=== PATIENT | male | born 1945 | race Caucasian/White ===

== ENCOUNTER 2016-11-02 09:50 | Emergency (ER) | payer MEDICARE ==
[2016-11-02] MEDS ORDERED: MORPHINE SULFATE 4 MG/ML SYRINGE IVP STA (10:24)
[2016-11-02] MEDS ORDERED: SODIUM CHLORIDE 0.9% 1,000 ML IV STA (10:25)
--- NOTE | 2016-11-02 10:29 | ED ---
General Adult HPI - General Chief complaint: Extremity Problem,Nontraumatic Stated complaint: tight leg muscles Time Seen by Provider: 11/02/16 10:05 Source: patient Mode of arrival: wheelchair Limitations: no limitations - History of Present Illness Initial comments: Patient is a 71-year-old male with history of CAD, heart failure on Lasix, CVA on Savaysa, digoxin use presenting for bilateral lotion and cramping. Patient states that over the past one to days. Patient's been trying in anti- inflammatory that he gets from the [employer] store with some relief. Patient states worse with ambulation. Patient states the cramps while laying in bed as well. Patient denies any trauma. Patient denies history of DVT. Patient has any weakness or numbness. Denies fever, chills, chest pain, shortness breath, nausea, vomiting, diarrhea, dysuria. - Related Data Home Medications Medication Instructions Recorded Confirmed Lisinopril-Hctz 20-25 mg 1 tab PO DAILY 01/25/15 11/02/16 [Zestoretic 20-25] Cyanocobalamin [Vitamin B-12] 500 mcg PO DAILY 06/30/15 11/02/16 Digoxin [Lanoxin] 125 mcg PO DAILY 08/14/15 11/02/16 Metoprolol Tartrate [Lopressor] 100 mg PO DAILY 01/11/16 11/02/16 Albuterol Inhaler [Ventolin Hfa 1 - 2 puff INHALATION RT-Q6H PRN 11/02/16 Inhaler] Diltiazem HCl [Diltiazem 24Hr ER] 180 mg PO DAILY 11/02/16 11/02/16 Previous Rx's Medication Instructions Recorded Atorvastatin [Lipitor] 80 mg PO DAILY #90 tab 07/04/15 Edoxaban Tosylate [Savaysa] 60 mg PO DAILY #30 tablet 07/04/15 Furosemide [Lasix] 40 mg PO BID@0900,1600 #60 tab 07/04/15 Nitroglycerin Sl Tabs [Nitrostat] 0.4 mg SUBLINGUAL Q5M PRN #30 tab 07/04/15 Potassium Chloride ER [K-Dur 10] 10 meq PO BID #60 tab.er.prt 07/04/15 Aspirin 81 mg PO DAILY #30 chewable 04/25/16 HYDROcodone/APAP 5-325MG [[place] 5] 1 each PO Q6HR PRN #10 tab 11/02/16 Methocarbamol [Robaxin] 500 mg PO TID #21 tab 11/02/16 Allergies Allergy/AdvReac Type Severity Reaction Status Date / Time No Known Allergies Allergy Verified 11/02/16 12:58 Review of Systems ROS Statement: Those systems with pertinent positive or pertinent negative responses have been documented in the HPI. Constitutional: No fever and no chills. HENT: No congestion, no rhinorrhea and no sore throat. Eyes: No discharge and no redness. Respiratory: No cough and no shortness of breath. Cardiovascular: No chest pain and no palpitations. Gastrointestinal: No nausea, no vomiting, no abdominal pain and no diarrhea. Genitourinary: No dysuria and no hematuria. Musculoskeletal: No back pain and + myalgias. Skin: No pallor and no rash. Neurological: No dizziness and No headaches. ROS Other: All systems not noted in ROS Statement are negative. Past Medical History Past Medical History: Coronary Artery Disease (CAD), Heart Failure, CVA/TIA, GERD/Reflux, Osteoarthritis (OA), Pneumonia Additional Past Medical History / Comment(s): SEE DR FLORES'S H&P History of Any Multi-Drug Resistant Organisms: None Reported Past Surgical History: Orthopedic Surgery Additional Past Surgical History / Comment(s): RACHNA hand surgery FOR NERVE DAMAGE , colonoscopy, RT KNEE ARTHROSCOPY Past Anesthesia/Blood Transfusion Reactions: No Reported Reaction Past Psychological History: No Psychological Hx Reported Smoking Status: Former smoker Past Alcohol Use History: None Reported Additional Past Alcohol Use History / Comment(s): STOPPED SMOKING 06/2016, STARTED 1955 Past Drug Use History: None Reported - Past Family History Mother Family Medical History: Cancer Additional Family Medical History / Comment(s): LEUKEMIA Father Family Medical History: No Reported History Additional Family Medical History / Comment(s): PT STATED DAD FROM OLD AGE. General Exam - General Exam Comments Initial Comments: Constitutional: Patient appears well-developed and well-nourished. No distress. Head: Normocephalic and atraumatic. Eyes: Conjunctivae and EOM are normal. Right eye exhibits no discharge. Left eye exhibits no discharge. No scleral icterus. Neck: Normal range of motion. Neck supple. Cardiovascular: Normal rate and regular rhythm. No murmur heard. Pulmonary/Chest: Effort normal and breath sounds normal. No respiratory distress. No wheezes. Abdominal: Soft. No distension. There is no tenderness. There is no rebound and no guarding. Musculoskeletal: Bilateral calf tenderness worse with hyperplantarflexion and hyperdorsiflexion. Distal sensation intact. Distal motor intact. Bilateral DP and TP pulses present by Doppler. Neurological: Patient alert and oriented to person, place, and time. Skin: Skin is warm and dry. Not diaphoretic. Nursing notes and vitals reviewed. Limitations: no limitations Course Vital Signs 11/02/16 11/02/16 11/02/16 09:54 11:43 13:23 Temperature 97.8 F 98.1 F 97.5 F L Pulse Rate 73 78 82 Respiratory 20 18 18 Rate Blood Pressure 101/52 127/59 113/53 O2 Sat by Pulse 98 92 L 95 Oximetry Medical Decision Making - Medical Decision Making Patient's a 71-year-old male with history of CAD, CVA on digoxin and Syvasa presenting with bilateral calf pain. Pain is intermittent and was given 4 mg of morphine. Laboratory work showed a WBC of 16.6 without any fevers/chills, warmth or extremities, redness or extremities or other indicators of infection. Distal pulses are present with Doppler. Hemoglobin stable at 12.3. Mild worsening of creatinine 1.7 baseline to 2.0. Lactic acid 1.4. Digoxin level within normal limits. Duplex ultrasound negative for DVT. Patient's magnesium was replaced with improvement of pain. Magnesium was 1.6. Prior to discharge, patient was resting comfortably in bed. Course of stay improved after magnesium replacement. Denies pain currently. Discussed physical exam and diagnostic tests with patient. Questions answered and patient is agreeable to discharge with close follow up with Primary Care Physician. Instructed to return to Emergency Department if symptoms worsen. Concern for possible claudication for which patient is Syvasa. Distal pulses are present. Vascular surgery referral provided. - Lab Data Result diagrams: 11/02/16 11:30 11/02/16 11:30 Lab Results 11/02/16 11/02/16 11/02/16 Range/Units 11:30 11:30 11:30 WBC 16.6 H (3.8-10.6) k/uL RBC 4.15 L (4.30-5.90) m/uL Hgb 12.3 L (13.0-17.5) gm/dL Hct 37.9 L (39.0-53.0) % MCV 91.4 (80.0-100.0) fL MCH 29.8 (25.0-35.0) pg MCHC 32.6 (31.0-37.0) g/dL RDW 13.8 (11.5-15.5) % Plt Count 317 (150-450) k/uL Neutrophils % 83 % Lymphocytes % 7 % Monocytes % 7 % Eosinophils % 2 % Basophils % 1 % Neutrophils # 13.8 H (1.3-7.7) k/uL Lymphocytes # 1.1 (1.0-4.8) k/uL Monocytes # 1.1 H (0-1.0) k/uL Eosinophils # 0.4 (0-0.7) k/uL Basophils # 0.1 (0-0.2) k/uL PT 17.1 H (9.0-12.0) sec INR 1.8 (<1.1) APTT 35.1 H (22.0-30.0) sec Sodium 142 (137-145) mmol/L Potassium 4.4 (3.5-5.1) mmol/L Chloride 97 L (98-107) mmol/L Carbon Dioxide 30 (22-30) mmol/L Anion Gap 15 mmol/L BUN 55 H (9-20) mg/dL Creatinine 2.01 H (0.66-1.25) mg/dL Est GFR (MDRD) Af Amer 40 (>60 ml/min/1.73 sqM) Est GFR (MDRD) Non-Af 33 (>60 ml/min/1.73 sqM) Glucose 115 H (74-99) mg/dL Plasma Lactic Acid [place] (0.7-2.0) mmol/L Calcium 9.4 (8.4-10.2) mg/dL Magnesium 1.6 (1.6-2.3) mg/dL Digoxin 1.7 ng/mL 11/02/16 Range/Units 11:40 WBC (3.8-10.6) k/uL RBC (4.30-5.90) m/uL Hgb (13.0-17.5) gm/dL Hct (39.0-53.0) % MCV (80.0-100.0) fL MCH (25.0-35.0) pg MCHC (31.0-37.0) g/dL RDW (11.5-15.5) % Plt Count (150-450) k/uL Neutrophils % % Lymphocytes % % Monocytes % % Eosinophils % % Basophils % % Neutrophils # (1.3-7.7) k/uL Lymphocytes # (1.0-4.8) k/uL Monocytes # (0-1.0) k/uL Eosinophils # (0-0.7) k/uL Basophils # (0-0.2) k/uL PT (9.0-12.0) sec INR (<1.1) APTT (22.0-30.0) sec Sodium (137-145) mmol/L Potassium (3.5-5.1) mmol/L Chloride (98-107) mmol/L Carbon Dioxide (22-30) mmol/L Anion Gap mmol/L BUN (9-20) mg/dL Creatinine (0.66-1.25) mg/dL Est GFR (MDRD) Af Amer (>60 ml/min/1.73 sqM) Est GFR (MDRD) Non-Af (>60 ml/min/1.73 sqM) Glucose (74-99) mg/dL Plasma Lactic Acid [place] 1.4 (0.7-2.0) mmol/L Calcium (8.4-10.2) mg/dL Magnesium (1.6-2.3) mg/dL Digoxin ng/mL Disposition Clinical Impression: Bilateral calf pain Disposition: HOME SELF-CARE Condition: Good Prescriptions: HYDROcodone/APAP 5-325MG [[place] 5] 1 each PO Q6HR PRN #10 tab PRN Reason: Severe Pain Methocarbamol [Robaxin] 500 mg PO TID #21 tab Referrals: Akash Muñoz DO [Primary Care Provider] - 1-2 days Sidra Selby MD [STAFF PHYSICIAN] - 1-2 days
[2016-11-02 11:46] VITALS: RESP 18
[2016-11-02 11:49] LABS: Basophils # (A) 0.1 k/uL (0-0.2); Basophils % (A) 1 %; CH 30.7; CHCM 33.7; Eosinophils # (A) 0.4 k/uL (0-0.7); Eosinophils % (A) 2 %; HCT 37.9 % (39.0-53.0); HDW 2.77; HGB 12.3 gm/dL (13.0-17.5); Luc # (Auto) 0.14; Luc % (Auto) 1; Lymphocytes # (A) 1.1 k/uL (1.0-4.8); Lymphocytes % (A) 7 %; MCH 29.8 pg (25.0-35.0); MCHC 32.6 g/dL (31.0-37.0); MCV 91.4 fL (80.0-100.0); Mean Platelet Volume 8.2; Monocytes # (A) 1.1 k/uL (0-1.0); Monocytes % (A) 7 %; Neutrophils # (A) 13.8 k/uL (1.3-7.7); Neutrophils % (A) 83 %; RBC 4.15 m/uL (4.30-5.90); RDW 13.8 % (11.5-15.5); WBC 16.6 k/uL (3.8-10.6); WBC (Perox) 16.46
[2016-11-02 12:02] LABS: INR 1.8 (<1.1); Partial Thromboplastin Time 35.1 sec (22.0-30.0); Prothrombin Time 17.1 sec (9.0-12.0)
[2016-11-02 12:33] LABS: Calcium 9.4 mg/dL (8.4-10.2); Digoxin 1.7 ng/mL; Magnesium 1.6 mg/dL (1.6-2.3); Potassium 4.4 mmol/L (3.5-5.1)
--- NOTE | 2016-11-02 12:37 | US ---
EXAMINATION TYPE: US venous doppler duplex LE BI DATE OF EXAM: 11/02/2016 10:26 AM COMPARISON: NONE CLINICAL HISTORY: Pain, leg tightness. SIDE PERFORMED: Bilateral VESSELS IMAGED: External Iliac Vein (EIV) Common Femoral Vein Deep Femoral Vein Greater Saphenous Vein * Femoral Vein Popliteal Vein Small Saphenous Vein * Proximal Calf Veins (* superficial vessels) TECHNOLOGIST IMPRESSION: wnl Right Leg: Appears negative as seen for DVT Left Leg: Appears negative as seen for DVT IMPRESSION: Normal exam. No evidence of deep venous thrombosis. There is a 5 x 2 cm popliteal cyst n oted on the right side.
[2016-11-02] MEDS ORDERED: MAGNESIUM OXIDE 400 MG TAB PO STA (12:44)
--- NOTE | 2016-11-02 14:27 | ED ---
Medical Decision Making - Lab Data Result diagrams: 11/02/16 11:30 11/02/16 11:30 Lab Results 11/02/16 11/02/16 11/02/16 Range/Units 11:30 11:30 11:30 WBC 16.6 H (3.8-10.6) k/uL RBC 4.15 L (4.30-5.90) m/uL Hgb 12.3 L (13.0-17.5) gm/dL Hct 37.9 L (39.0-53.0) % MCV 91.4 (80.0-100.0) fL MCH 29.8 (25.0-35.0) pg MCHC 32.6 (31.0-37.0) g/dL RDW 13.8 (11.5-15.5) % Plt Count 317 (150-450) k/uL Neutrophils % 83 % Lymphocytes % 7 % Monocytes % 7 % Eosinophils % 2 % Basophils % 1 % Neutrophils # 13.8 H (1.3-7.7) k/uL Lymphocytes # 1.1 (1.0-4.8) k/uL Monocytes # 1.1 H (0-1.0) k/uL Eosinophils # 0.4 (0-0.7) k/uL Basophils # 0.1 (0-0.2) k/uL PT 17.1 H (9.0-12.0) sec INR 1.8 (<1.1) APTT 35.1 H (22.0-30.0) sec Sodium 142 (137-145) mmol/L Potassium 4.4 (3.5-5.1) mmol/L Chloride 97 L (98-107) mmol/L Carbon Dioxide 30 (22-30) mmol/L Anion Gap 15 mmol/L BUN 55 H (9-20) mg/dL Creatinine 2.01 H (0.66-1.25) mg/dL Est GFR (MDRD) Af Amer 40 (>60 ml/min/1.73 sqM) Est GFR (MDRD) Non-Af 33 (>60 ml/min/1.73 sqM) Glucose 115 H (74-99) mg/dL Plasma Lactic Acid [place] (0.7-2.0) mmol/L Calcium 9.4 (8.4-10.2) mg/dL Magnesium 1.6 (1.6-2.3) mg/dL Digoxin 1.7 ng/mL 11/02/16 Range/Units 11:40 WBC (3.8-10.6) k/uL RBC (4.30-5.90) m/uL Hgb (13.0-17.5) gm/dL Hct (39.0-53.0) % MCV (80.0-100.0) fL MCH (25.0-35.0) pg MCHC (31.0-37.0) g/dL RDW (11.5-15.5) % Plt Count (150-450) k/uL Neutrophils % % Lymphocytes % % Monocytes % % Eosinophils % % Basophils % % Neutrophils # (1.3-7.7) k/uL Lymphocytes # (1.0-4.8) k/uL Monocytes # (0-1.0) k/uL Eosinophils # (0-0.7) k/uL Basophils # (0-0.2) k/uL PT (9.0-12.0) sec INR (<1.1) APTT (22.0-30.0) sec Sodium (137-145) mmol/L Potassium (3.5-5.1) mmol/L Chloride (98-107) mmol/L Carbon Dioxide (22-30) mmol/L Anion Gap mmol/L BUN (9-20) mg/dL Creatinine (0.66-1.25) mg/dL Est GFR (MDRD) Af Amer (>60 ml/min/1.73 sqM) Est GFR (MDRD) Non-Af (>60 ml/min/1.73 sqM) Glucose (74-99) mg/dL Plasma Lactic Acid [place] 1.4 (0.7-2.0) mmol/L Calcium (8.4-10.2) mg/dL Magnesium (1.6-2.3) mg/dL Digoxin ng/mL Disposition Clinical Impression: Bilateral calf pain Disposition: HOME SELF-CARE Condition: Good Prescriptions: HYDROcodone/APAP 5-325MG [[place] 5] 1 each PO Q6HR PRN #10 tab PRN Reason: Severe Pain Methocarbamol [Robaxin] 500 mg PO TID #21 tab Referrals: Akash Muñoz DO [Primary Care Provider] - 1-2 days Sidra Selby MD [STAFF PHYSICIAN] - 1-2 days
[2016-11-02 14:55] VITALS: BP 120/60; PULSE 86; TEMP 97.8
== END 2016-11-02 14:50 | disposition home or self-care (01) ==
LOC: EC 09:50
DX: M79.661 Pain in right lower leg (principal); M79.662 Pain in left lower leg; I50.9 Heart failure, unspecified; I25.10 Atherosclerotic heart disease of native coronary artery without angina pectoris; M19.90 Unspecified osteoarthritis, unspecified site; Z87.01 Personal history of pneumonia (recurrent); Z86.73 Personal history of transient ischemic attack (TIA), and cerebral infarction without residual deficits; Z87.891 Personal history of nicotine dependence; Z79.899 Other long term (current) drug therapy; Z98.890 Other specified postprocedural states
CPT/HCPCS: 96374; 96361 ×3; 36415; 80048; 80162; 83605; 83735; 85025; 85610; 85730; 93970; 99284; J2270

== ENCOUNTER → 2017-07-30 | Outpatient (CLI) | payer MEDICARE | LOC: LABPAT 09:38 | PROVIDERS: ATTEND Otolaryngology | DX: Z01.818 Encounter for other preprocedural examination (principal); H93.3X1 Disorders of right acoustic nerve; H91.91 Unspecified hearing loss, right ear | CPT/HCPCS: 36415; 82565 ==

== ENCOUNTER → 2017-07-31 | Outpatient (CLI) | payer MEDICARE ==
--- NOTE | 2017-07-31 07:22 | MR ---
EXAMINATION TYPE: MR brain and iac wo/w con DATE OF EXAM: 07/31/2017 7:05 AM COMPARISON: NONE HISTORY: Hearing loss TECHNIQUE: Multiplanar and multispin-echo imaging of the brain was performed both before and after the administr ation of contrast. High-resolution images are obtained of the internal auditory canals performed uti lizing 10 mL intravenous Gadavist contrast. The ventricles, basal cisterns and sulci overlying the cerebral convexities are moderately enlarged. There is no evidence for midline shift or mass effect. Acute intracranial hemorrhage or extra-axial collection is not evident. There is evidence of periventricular white matter ischemic demyelination as well as remote deep white matter insults. High-resolution imaging of the internal auditory canals fails demonstrate evidence for an enhancing a coustic schwannoma or cerebellopontine cistern angle mass. Following contrast administration, there is no evidence for pathologic enhancement or enhancing mass. The mastoid air cells are well-aerated. Chronic pansinusitis. IMPRESSION: 1. No evidence of acoustic schwannoma or cerebellopontine angle mass. 2. age-related atrophic and chronic small vessel ischemic change. No acute intracranial process ident ified.
== END ==
LOC: RADMRIMAIN 05:44
PROVIDERS: ATTEND Otolaryngology
DX: H93.3X1 Disorders of right acoustic nerve (principal); G31.1 Senile degeneration of brain, not elsewhere classified; I67.82 Cerebral ischemia
CPT/HCPCS: 70553; A9581

== ENCOUNTER 2017-10-06 15:51 | Inpatient (IN) | payer MEDICARE ==
--- NOTE | 2017-10-06 16:04 | ED ---
General Adult HPI - General Stated complaint: near syncope Time Seen by Provider: 10/06/17 15:59 Source: RN notes reviewed, old records reviewed - History of Present Illness Initial comments: This is a 72-year-old male to the ER for evaluation today. Patient's coming in for evaluation of weakness and not feeling well. Patient had EMS called by his secondary to near syncope and following out. Patient states he has not felt well for about 3 days. He denies any pain no headache no chest pain or shortness of breath no abdominal pain. Patient denies any symptoms of cough congestion runny nose or recent fevers. No one else in his household is sick currently. No recent medication changes. Patient states he is appetite has been diminished and he does feel fatigued. - Related Data Home Medications Medication Instructions Recorded Confirmed Lisinopril-Hctz 20-25 mg 1 tab PO DAILY 01/25/15 10/06/17 [Zestoretic 20-25] Cyanocobalamin [Vitamin B-12] 500 mcg PO DAILY 06/30/15 10/06/17 Digoxin [Lanoxin] 125 mcg PO DAILY 08/14/15 10/06/17 Metoprolol Tartrate [Lopressor] 100 mg PO DAILY 01/11/16 10/06/17 Albuterol Inhaler [Ventolin Hfa 1 - 2 puff INHALATION RT-Q6H PRN 11/02/16 Inhaler] Diltiazem HCl [Diltiazem 24Hr ER] 180 mg PO DAILY@1600 11/02/16 10/06/17 Previous Rx's Medication Instructions Recorded Atorvastatin [Lipitor] 80 mg PO DAILY #90 tab 07/04/15 Edoxaban Tosylate [Savaysa] 60 mg PO DAILY #30 tablet 07/04/15 Furosemide [Lasix] 40 mg PO BID@0900,1600 #60 tab 07/04/15 Nitroglycerin Sl Tabs [Nitrostat] 0.4 mg SUBLINGUAL Q5M PRN #30 tab 07/04/15 Potassium Chloride ER [K-Dur 10] 10 meq PO BID #60 tab.er.prt 07/04/15 Aspirin 81 mg PO DAILY #30 chewable 01/15/16 Allergies Allergy/AdvReac Type Severity Reaction Status Date / Time No Known Allergies Allergy Verified 10/06/17 16:15 Review of Systems ROS Statement: Those systems with pertinent positive or pertinent negative responses have been documented in the HPI. ROS Other: All systems not noted in ROS Statement are negative. Past Medical History Past Medical History: Coronary Artery Disease (CAD), Heart Failure, CVA/TIA, GERD/Reflux, Osteoarthritis (OA), Pneumonia Additional Past Medical History / Comment(s): SEE DR FLORES'S H&P History of Any Multi-Drug Resistant Organisms: None Reported Past Surgical History: Orthopedic Surgery Additional Past Surgical History / Comment(s): RACHNA hand surgery FOR NERVE DAMAGE , colonoscopy, RT KNEE ARTHROSCOPY Past Anesthesia/Blood Transfusion Reactions: No Reported Reaction Past Psychological History: No Psychological Hx Reported Smoking Status: Former smoker Past Alcohol Use History: None Reported Additional Past Alcohol Use History / Comment(s): STOPPED SMOKING 06/2016, STARTED 1955 Past Drug Use History: None Reported - Past Family History Mother Family Medical History: Cancer Additional Family Medical History / Comment(s): LEUKEMIA Father Family Medical History: No Reported History Additional Family Medical History / Comment(s): PT STATED DAD FROM OLD AGE. General Exam General appearance: alert, in no apparent distress Head exam: Present: atraumatic, normocephalic, normal inspection Eye exam: Present: normal appearance, PERRL, EOMI. Absent: scleral icterus, conjunctival injection, periorbital swelling ENT exam: Present: normal exam, mucous membranes moist Neck exam: Present: normal inspection. Absent: tenderness, meningismus, lymphadenopathy Respiratory exam: Present: normal lung sounds bilaterally. Absent: respiratory distress, wheezes, rales, rhonchi, stridor Cardiovascular Exam: Present: regular rate, normal rhythm, normal heart sounds. Absent: systolic murmur, diastolic murmur, rubs, gallop, clicks GI/Abdominal exam: Present: soft, normal bowel sounds. Absent: distended, tenderness, guarding, rebound, rigid Extremities exam: Present: normal inspection, full ROM, normal capillary refill. Absent: tenderness, pedal edema, joint swelling, calf tenderness Back exam: Present: normal inspection Neurological exam: Present: alert, oriented X3, CN II-XII intact Psychiatric exam: Present: normal affect, normal mood Skin exam: Present: warm, dry, intact, normal color. Absent: rash Course Vital Signs 10/06/17 10/06/17 10/06/17 16:03 16:51 17:52 Temperature Pulse Rate 87 75 74 Respiratory 20 18 18 Rate Blood Pressure 107/52 100/52 109/59 O2 Sat by Pulse 100 96 Oximetry 10/06/17 10/06/17 18:20 19:00 Temperature 97.0 F L Pulse Rate 78 87 Respiratory 16 16 Rate Blood Pressure 127/56 121/61 O2 Sat by Pulse 100 100 Oximetry EKG Findings - EKG Comments: EKG Findings:: EKG shows A. fib rate of 81, QRS 92, QTc 441 Medical Decision Making - Medical Decision Making 72 male the ER for evaluation of weakness, not feeling well, severe dehydration , renal failure. Patient to be admitted for rate resuscitation, continued evaluation - Lab Data Result diagrams: 10/08/17 06:25 10/08/17 06:25 Lab Results 10/06/17 10/06/17 10/06/17 Range/Units 16:25 16:25 16:25 WBC 17.4 H (3.8-10.6) k/uL RBC 4.32 (4.30-5.90) m/uL Hgb 12.4 L (13.0-17.5) gm/dL Hct 40.3 (39.0-53.0) % MCV 93.2 (80.0-100.0) fL MCH 28.8 (25.0-35.0) pg MCHC 30.9 L (31.0-37.0) g/dL RDW 14.7 (11.5-15.5) % Plt Count 669 H (150-450) k/uL Neutrophils % 90 % Lymphocytes % 5 % Monocytes % 4 % Eosinophils % 0 % Basophils % 0 % Neutrophils # 15.6 H (1.3-7.7) k/uL Lymphocytes # 0.9 L (1.0-4.8) k/uL Monocytes # 0.7 (0-1.0) k/uL Eosinophils # 0.0 (0-0.7) k/uL Basophils # 0.1 (0-0.2) k/uL PT (9.0-12.0) sec INR (<1.2) APTT (22.0-30.0) sec Sodium 133 L (137-145) mmol/L Potassium 5.3 H (3.5-5.1) mmol/L Chloride 91 L (98-107) mmol/L Carbon Dioxide 24 (22-30) mmol/L Anion Gap 18 mmol/L BUN 101 H* (9-20) mg/dL Creatinine 2.90 H (0.66-1.25) mg/dL Est GFR (MDRD) Af Amer 26 (>60 ml/min/1.73 sqM) Est GFR (MDRD) Non-Af 21 (>60 ml/min/1.73 sqM) Glucose 158 H (74-99) mg/dL Calcium 9.7 (8.4-10.2) mg/dL Phosphorus 6.7 H (2.5-4.5) mg/dL Magnesium 2.0 (1.6-2.3) mg/dL Total Bilirubin 1.1 (0.2-1.3) mg/dL AST 28 (17-59) U/L ALT 52 (21-72) U/L Alkaline Phosphatase 118 (38-126) U/L Total Creatine Kinase 69 (55-170) U/L CK-MB (CK-2) 1.4 (0.0-2.4) ng/mL CK-MB (CK-2) Rel Index 2.0 Troponin I <0.012 (0.000-0.034) ng/mL Total Protein 7.3 (6.3-8.2) g/dL Albumin 3.9 (3.5-5.0) g/dL 10/06/17 Range/Units 16:25 WBC (3.8-10.6) k/uL RBC (4.30-5.90) m/uL Hgb (13.0-17.5) gm/dL Hct (39.0-53.0) % MCV (80.0-100.0) fL MCH (25.0-35.0) pg MCHC (31.0-37.0) g/dL RDW (11.5-15.5) % Plt Count (150-450) k/uL Neutrophils % % Lymphocytes % % Monocytes % % Eosinophils % % Basophils % % Neutrophils # (1.3-7.7) k/uL Lymphocytes # (1.0-4.8) k/uL Monocytes # (0-1.0) k/uL Eosinophils # (0-0.7) k/uL Basophils # (0-0.2) k/uL PT 11.3 (9.0-12.0) sec INR 1.2 H (<1.2) APTT 23.4 (22.0-30.0) sec Sodium (137-145) mmol/L Potassium (3.5-5.1) mmol/L Chloride (98-107) mmol/L Carbon Dioxide (22-30) mmol/L Anion Gap mmol/L BUN (9-20) mg/dL Creatinine (0.66-1.25) mg/dL Est GFR (MDRD) Af Amer (>60 ml/min/1.73 sqM) Est GFR (MDRD) Non-Af (>60 ml/min/1.73 sqM) Glucose (74-99) mg/dL Calcium (8.4-10.2) mg/dL Phosphorus (2.5-4.5) mg/dL Magnesium (1.6-2.3) mg/dL Total Bilirubin (0.2-1.3) mg/dL AST (17-59) U/L ALT (21-72) U/L Alkaline Phosphatase (38-126) U/L Total Creatine Kinase (55-170) U/L CK-MB (CK-2) (0.0-2.4) ng/mL CK-MB (CK-2) Rel Index Troponin I (0.000-0.034) ng/mL Total Protein (6.3-8.2) g/dL Albumin (3.5-5.0) g/dL - Radiology Data Radiology results: report reviewed (Chest x-ray is negative for acute disease), image reviewed Disposition Clinical Impression: ARF (acute renal failure), Dehydration Disposition: ADMITTED IP TO THIS [facility] Condition: Fair
[2017-10-06] MEDS ORDERED: SODIUM CHLORIDE 0.9% 1,000 ML IV STA ×2 (16:22→18:29)
[2017-10-06 16:38] LABS: Basophils # (A) 0.1 k/uL (0-0.2); Basophils % (A) 0 %; Eosinophils % (A) 0 %; HCT 40.3 % (39.0-53.0); HGB 12.4 gm/dL (13.0-17.5); Lymphocytes # (A) 0.9 k/uL (1.0-4.8); Lymphocytes % (A) 5 %; MCH 28.8 pg (25.0-35.0); MCHC 30.9 g/dL (31.0-37.0); MCV 93.2 fL (80.0-100.0); Mean Platelet Volume 7.4; Monocytes # (A) 0.7 k/uL (0-1.0); Monocytes % (A) 4 %; Neutrophils # (A) 15.6 k/uL (1.3-7.7); Neutrophils % (A) 90 %; Platelet Count 669 k/uL (150-450); RBC 4.32 m/uL (4.30-5.90); RDW 14.7 % (11.5-15.5); WBC 17.4 k/uL (3.8-10.6)
[2017-10-06 16:46] LABS: Albumin 3.9 g/dL (3.5-5.0); Calcium 9.7 mg/dL (8.4-10.2); Phosphorus 6.7 mg/dL (2.5-4.5); Potassium 5.3 mmol/L (3.5-5.1); Total Bilirubin 1.1 mg/dL (0.2-1.3); Total Protein 7.3 g/dL (6.3-8.2)
--- NOTE | 2017-10-06 16:53 | XR ---
EXAMINATION TYPE: XR chest 2V DATE OF EXAM: 10/06/2017 COMPARISON: 01/11/2016 HISTORY: Weakness TECHNIQUE: Frontal and lateral views of the chest are obtained. FINDINGS: There is no heart failure nor confluent pneumonic infiltrate. Thoracic aorta is atheromato us. There is spurring in the thoracic spine. There are chest leads. IMPRESSION: No active cardiopulmonary disease. No change. Right nipple shadow is noted.
[2017-10-06 16:59] LABS: INR 1.2 (<1.2); Partial Thromboplastin Time 23.4 sec (22.0-30.0); Prothrombin Time 11.3 sec (9.0-12.0)
[2017-10-06 17:07] LABS: Creatine Kinase 69 U/L (55-170)
[2017-10-06 17:20] LABS: Creatine Kinase MB 1.4 ng/mL (0.0-2.4); Troponin I <0.012 ng/mL (0.000-0.034)
[2017-10-06] MEDS ORDERED: SODIUM CHLORIDE 0.9% 1,000 ML IV ONE (18:29)
[2017-10-06] MEDS ORDERED: SODIUM CHLORIDE 0.9% 500 ML IV STA (18:29)
[2017-10-06] MEDS ORDERED: ALBUTEROL NEBULIZED 2.5 MG/3 ML INHALATION PRN (21:03)
[2017-10-06] MEDS ORDERED: NITROGLYCERIN SL TABS 0.4 MG TAB SUBLINGUAL PRN (21:03)
[2017-10-06] MEDS: SODIUM CHLORIDE 0.9% 1,000 ML IV SCH (22:27)
[2017-10-07 01:20] VITALS: BMI 33.6
[2017-10-07 07:11] LABS: Appearance,Urine Clear (Clear); Bilirubin,Urine Negative (Negative); Blood,Urine Negative (Negative); Color,Urine Yellow; Glucose,Urine (UA) Negative (Negative); Ketones,Urine Negative (Negative); Leukocyte Esterase,Urine Negative (Negative); Nitrite,Urine Negative (Negative); Protein,Urine Negative (Negative); Specific Gravity,Urine 1.007 (1.001-1.035); Urobilinogen,Urine <2.0 mg/dL (<2.0)
[2017-10-07 07:19] LABS: Basophils # (A) 0.1 k/uL (0-0.2); Basophils % (A) 0 %; Eosinophils # (A) 0.1 k/uL (0-0.7); Eosinophils % (A) 0 %; HCT 33.9 % (39.0-53.0); HGB 10.9 gm/dL (13.0-17.5); Lymphocytes # (A) 1.4 k/uL (1.0-4.8); Lymphocytes % (A) 8 %; MCH 28.9 pg (25.0-35.0); MCV 90.4 fL (80.0-100.0); Mean Platelet Volume 7.3; Monocytes % (A) 6 %; Neutrophils # (A) 14.6 k/uL (1.3-7.7); Neutrophils % (A) 85 %; Platelet Count 503 k/uL (150-450); RBC 3.76 m/uL (4.30-5.90); RDW 14.5 % (11.5-15.5); WBC 17.3 k/uL (3.8-10.6)
[2017-10-07 07:40] LABS: Albumin 3.3 g/dL (3.5-5.0); Calcium 8.9 mg/dL (8.4-10.2); Potassium 4.6 mmol/L (3.5-5.1); Total Protein 6.3 g/dL (6.3-8.2)
[2017-10-07] MEDS: CYANOCOBALAMIN 500 MCG TAB PO SCH (08:15)
[2017-10-07] MEDS: ASPIRIN 81 MG PO SCH (08:15)
[2017-10-07] MEDS: PANTOPRAZOLE 40 MG TABLET PO SCH (08:16)
[2017-10-07] MEDS: ATORVASTATIN 80 MG TAB PO SCH (08:16)
[2017-10-07] MEDS: DIGOXIN 125 MCG TAB PO SCH (08:16)
[2017-10-07] MEDS: SODIUM CHLORIDE 0.9% 1,000 ML IV SCH ×2 (08:17→16:30)
[2017-10-07] MEDS ORDERED: ENOXAPARIN 40 MG/0.4 ML SYRINGE SQ SCH (09:00)
[2017-10-07] MEDS ORDERED: METOPROLOL TARTRATE 50 MG TAB PO SCH (09:00)
[2017-10-07] MEDS ORDERED: EDOXABAN TOSYLATE 60 MG TABLET PO SCH (09:00)
--- NOTE | 2017-10-07 11:44 | P.NPCON ---
History of Present Illness - Reason for Consult acute renal failure - History of Present Illness Reason for consultation: Acute kidney injury History of present illness: Patient is a 72-year-old male seen in renal consultation for acute kidney injury on chronic kidney disease. Patient has chronic kidney disease stage III with baseline creatinine near 1.5 secondary to nephrosclerosis. His creatinine was elevated at 2.9 on admission and is down to 2.72 today. He was also quite hypotensive with systolic blood pressure in the 100s which is now improved as well. His most recent blood pressure reading was 150/71. Patient presented to the hospital due to weakness and confusion. According to the the patient was confused so she decided to bring him to the hospital for further evaluation. He was taking thiazide as well as loop diuretics at home as he does have history of CHF. Patient denies any edema at this time. Patient states his urine was dark but he has been voiding. No hematuria or dysuria. Denies use of NSAIDs. Denies any vomiting or diarrhea. States he's been drinking quite a bit of water but his oral intake has been less compared to usual. He denies any personal or family history of renal disease. He is currently maintained on normal saline at 100 mL an hour. Vital signs are stable. General: The patient appeared well nourished and normally developed. HEENT: Head exam is unremarkable. Neck is without jugular venous distension. LUNGS: Lungs are clear to auscultation and percussion. Breath sounds decreased. HEART: Rate and Rhythm are regular. First and second heart sounds normal. No murmurs, rubs or gallops. ABDOMEN: Abdominal exam reveals normal bowel sounds. Non-tender and non- distended. No evidence of peritonitis. EXTREMITITES: No clubbing, cyanosis, or edema. Past Medical History Past Medical History: Coronary Artery Disease (CAD), Heart Failure, CVA/TIA, GERD/Reflux, Osteoarthritis (OA), Pneumonia Additional Past Medical History / Comment(s): . History of Any Multi-Drug Resistant Organisms: None Reported Past Surgical History: Orthopedic Surgery Additional Past Surgical History / Comment(s): RACHNA hand surgery, colonoscopy, RT knee arthroscopy Past Anesthesia/Blood Transfusion Reactions: No Reported Reaction Past Psychological History: No Psychological Hx Reported Smoking Status: Former smoker Past Alcohol Use History: None Reported Additional Past Alcohol Use History / Comment(s): STOPPED SMOKING 06/2016, STARTED 1955 Past Drug Use History: None Reported - Past Family History Mother Family Medical History: Cancer Additional Family Medical History / Comment(s): LEUKEMIA Father Family Medical History: No Reported History Additional Family Medical History / Comment(s): PT STATED DAD FROM OLD AGE. Medications and Allergies Home Medications Medication Instructions Recorded Confirmed Type Lisinopril-Hctz 20-25 mg 1 tab PO DAILY 01/25/15 10/06/17 History [Zestoretic 20-25] Cyanocobalamin [Vitamin B-12] 500 mcg PO DAILY 06/30/15 10/06/17 History Atorvastatin [Lipitor] 80 mg PO DAILY #90 tab 07/04/15 10/06/17 Rx Edoxaban Tosylate [Savaysa] 60 mg PO DAILY #30 tablet 07/04/15 10/06/17 Rx Furosemide [Lasix] 40 mg PO BID@0900,1600 #60 tab 07/04/15 10/06/17 Rx Nitroglycerin Sl Tabs [Nitrostat] 0.4 mg SUBLINGUAL Q5M PRN #30 tab 07/04/15 Rx Potassium Chloride ER [K-Dur 10] 10 meq PO BID #60 tab.er.prt 07/04/15 10/06/17 Rx Digoxin [Lanoxin] 125 mcg PO DAILY 08/14/15 10/06/17 History Metoprolol Tartrate [Lopressor] 100 mg PO DAILY 01/11/16 10/06/17 History Aspirin 81 mg PO DAILY #30 chewable 01/15/16 10/06/17 Rx Albuterol Inhaler [Ventolin Hfa 1 - 2 puff INHALATION RT-Q6H PRN 11/02/16 History Inhaler] Diltiazem HCl [Diltiazem 24Hr ER] 180 mg PO DAILY@1600 11/02/16 10/06/17 History Allergies Allergy/AdvReac Type Severity Reaction Status Date / Time No Known Allergies Allergy Verified 10/06/17 16:15 Physical Exam Vitals: Vital Signs Temp Pulse Pulse Resp BP BP Pulse Ox 10/07/17 07:00 97.6 F 102 H 18 150/71 98 10/06/17 22:30 18 10/06/17 21:58 97.4 F L 97 18 143/65 97 10/06/17 19:29 97.6 F 62 17 123/82 97 10/06/17 19:00 97.0 F L 87 16 121/61 100 10/06/17 18:20 78 16 127/56 100 10/06/17 17:52 74 18 109/59 96 10/06/17 16:51 75 18 100/52 10/06/17 16:03 87 20 107/52 100 Intake and Output 10/06/17 10/07/17 10/07/17 22:59 06:59 14:59 Intake Total 1040 Balance 1040 Intake: Intake, IV Titration 800 Amount Sodium Chloride 0.9% 1, 800 000 ml @ 100 mls/hr IV . Q10H LANG Rx#:[id number] Oral 240 Other: Voiding Method Urinal # Voids 0 1 1 Weight 103.419 kg 103.419 kg Patient Weight 10/08/17 06:59 Weight 103.419 kg Results - Lab Results Most recent lab results Calcium 8.9 mg/dL (8.4-10.2) 10/07/17 06:25 Phosphorus 6.7 mg/dL (2.5-4.5) H 10/06/17 16:25 Magnesium 2.0 mg/dL (1.6-2.3) 10/06/17 16:25 10/07/17 06:25 10/07/17 06:25 Assessment and Plan Plan: Assessment: #1. Nonoliguric acute kidney injury secondary to ATN secondary to hypotension and overdiuresis. Rule out urinary retention. Creatinine 2.9 at admission and is down to 2.72 today. #2. Hypotension related to diuresis. Resolved. #3. History of diastolic CHF. Currently compensated. #4. Hyponatremia. Now appears euvolemic. Partially due to excess fluid intake in the setting of low solute intake. #5. Chronic kidney disease stage III with baseline creatinine near 1.5 secondary to nephrosclerosis. Plan: Continue normal saline at 100 mL an hour. Add 1500 mL fluid restriction. Avoid nephrotoxic agents and hypotensive episodes. Diuretics held for now. Check postvoid residual. Check renal ultrasound. Encouraged oral intake. Repeat electrolytes in the morning. Thank you for the consultation. I will continue to follow the patient with you during his hospital stay.
--- NOTE | 2017-10-07 13:55 | P.HPIM ---
History of Present Illness H&P Date: 10/07/17 Chief Complaint: Weakness 72-year-old male who presented to the emergency room on 10/06/2017 after his called EMS secondary to the patient having a near syncopal episode. The patient states he has not been feeling well for the past few days and has felt weak. He denies shortness of breath, coughing, nausea, vomiting, diarrhea, chest pain or pressure. He states he can not pinpoint any symptoms, but has not felt like himself the past few days. He states he was eating and drinking at home but his oral intake has been less than his normal amount. The patient has a history of coronary artery disease, congestive heart failure, CVA/TIA, esophageal reflux disease, pneumonia, atrial fibrillation, and osteoarthritis. He is a former cigarette smoker and quit smoking 2015. In the emergency room, a chest x-ray was completed which negative for acute process. An EKG was completed revealing atrial fibrillation. Laboratory studies completed at that time reveal sodium 133, potassium 5.3, BUN 101, creatinine 2.9, white count 17.4, hemoglobin 12.4, platelet count 669, magnesium 2.0. Troponin negative 1. Review of Systems GENERAL: Resident for generalized weakness and malaise. Patient denies fever. Denies chills. EYES: Denies blurred vision. Denies vision changes. Denies eye pain. EARS, NOSE, MOUTH, & THROAT: Denies headache. Denies sore throat. Denies ear pain. RESPIRATORY: Denies cough. Denies shortness of breath. Denies sputum production. Denies hemoptysis. CARDIOVASCULAR: Denies chest pain or pressure. Denies palpitations. Denies arrhythmias. GASTROINTESTINAL: Positive for decreased oral intake. Denies abdominal pain. Denies diarrhea. Denies constipation. Denies nausea. Denies vomiting. Denies heartburn. Denies blood in the stool. GENITOURINARY: Denies urinary frequency. Denies burning. Denies dysuria. Denies cloudy urine. Denies blood in the urine. MUSCULOSKELETAL: Denies myalgias. Denies joint swelling. Denies decreased range of motion beyond patients baseline. INTEGUMENTARY: Denies pruitis. Denies rash. PSYCHIATRIC: Denies suicidal or homicial ideations. ENDOCRINE: Denies weight change. Denies polydipsia. Denies polyuria. HEMATOLOGIC: Denies bleeding disorders. Past Medical History Past Medical History: Coronary Artery Disease (CAD), Heart Failure, CVA/TIA, GERD/Reflux, Osteoarthritis (OA), Pneumonia Additional Past Medical History / Comment(s): . History of Any Multi-Drug Resistant Organisms: None Reported Past Surgical History: Orthopedic Surgery Additional Past Surgical History / Comment(s): RACHNA hand surgery, colonoscopy, RT knee arthroscopy Past Anesthesia/Blood Transfusion Reactions: No Reported Reaction Past Psychological History: No Psychological Hx Reported Smoking Status: Former smoker Past Alcohol Use History: None Reported Additional Past Alcohol Use History / Comment(s): STOPPED SMOKING 06/2016, STARTED 1955 Past Drug Use History: None Reported - Past Family History Mother Family Medical History: Cancer Additional Family Medical History / Comment(s): LEUKEMIA Father Family Medical History: No Reported History Additional Family Medical History / Comment(s): PT STATED DAD FROM OLD AGE. Medications and Allergies Home Medications Medication Instructions Recorded Confirmed Type Lisinopril-Hctz 20-25 mg 1 tab PO DAILY 01/25/15 10/06/17 History [Zestoretic 20-25] Cyanocobalamin [Vitamin B-12] 500 mcg PO DAILY 06/30/15 10/06/17 History Atorvastatin [Lipitor] 80 mg PO DAILY #90 tab 07/04/15 10/06/17 Rx Edoxaban Tosylate [Savaysa] 60 mg PO DAILY #30 tablet 07/04/15 10/06/17 Rx Furosemide [Lasix] 40 mg PO BID@0900,1600 #60 tab 07/04/15 10/06/17 Rx Nitroglycerin Sl Tabs [Nitrostat] 0.4 mg SUBLINGUAL Q5M PRN #30 tab 07/04/15 Rx Potassium Chloride ER [K-Dur 10] 10 meq PO BID #60 tab.er.prt 07/04/15 10/06/17 Rx Digoxin [Lanoxin] 125 mcg PO DAILY 08/14/15 10/06/17 History Metoprolol Tartrate [Lopressor] 100 mg PO DAILY 01/11/16 10/06/17 History Aspirin 81 mg PO DAILY #30 chewable 01/15/16 10/06/17 Rx Albuterol Inhaler [Ventolin Hfa 1 - 2 puff INHALATION RT-Q6H PRN 11/02/16 History Inhaler] Diltiazem HCl [Diltiazem 24Hr ER] 180 mg PO DAILY@1600 11/02/16 10/06/17 History Allergies Allergy/AdvReac Type Severity Reaction Status Date / Time No Known Allergies Allergy Verified 10/06/17 16:15 Physical Exam Vitals: Vital Signs Temp Pulse Pulse Resp BP BP Pulse Ox 10/07/17 07:00 97.6 F 102 H 18 150/71 98 10/06/17 22:30 18 10/06/17 21:58 97.4 F L 97 18 143/65 97 10/06/17 19:29 97.6 F 62 17 123/82 97 10/06/17 19:00 97.0 F L 87 16 121/61 100 10/06/17 18:20 78 16 127/56 100 10/06/17 17:52 74 18 109/59 96 10/06/17 16:51 75 18 100/52 10/06/17 16:03 87 20 107/52 100 Intake and Output 10/06/17 10/07/17 10/07/17 22:59 06:59 14:59 Intake Total 1040 Balance 1040 Intake: Intake, IV Titration 800 Amount Sodium Chloride 0.9% 1, 800 000 ml @ 100 mls/hr IV . Q10H LANG Rx#:[id number] Oral 240 Other: Voiding Method Urinal # Voids 0 1 1 Weight 103.419 kg 103.419 kg Patient Weight 10/08/17 06:59 Weight 103.419 kg GENERAL: This is a 72-year-old male in no apparent distress at the time of examination. Pleasant and cooperative. HEENT: Head is atraumatic, normocephalic. Pupils are equal, round, and reactive to light. Sclerae anicteric. Conjunctivae are clear. Mucus membranes of the mouth are moist. Neck is supple. RESPIRATORY: Clear to ausculation. No wheezes, rales, or rhonchi. No use of accessory muscles. Patient maintaining oxygen saturation greater than 92%. No chest wall tenderness is noted on palpation or with deep breathing. CARDIOVASCULAR: Regular rate and rhythm. S1 and S2 noted. No JVD noted. No S3 or S4 noted. GASTROINTESTINAL: No distention noted. Abdomen soft and round. Normal active bowel sounds auscultated x 4 quadrants. No pain or tenderness noted upon palpation. INTEGUMENTARY: No cyanosis. No jaundice. No rashes noted. No cellulitis noted. EXTREMITIES: 2+ peripheral pulses. No evidence of peripheral edema. No calf tenderness noted. NEUROLOGIC: Cranial nerves II-XII intact. PSYCHIATRIC: Awake, alert, and oriented X 3. Appropriate affect. Intact judgement and insight. Results CBC & Chem 7: 10/07/17 06:25 10/07/17 06:25 Labs: Abnormal Lab Results - Last 24 Hours (Table) 10/06/17 10/06/17 10/06/17 Range/Units 16:25 16:25 16:25 WBC 17.4 H (3.8-10.6) k/uL RBC (4.30-5.90) m/uL Hgb 12.4 L (13.0-17.5) gm/dL Hct (39.0-53.0) % MCHC 30.9 L (31.0-37.0) g/dL Plt Count 669 H (150-450) k/uL Neutrophils # 15.6 H (1.3-7.7) k/uL Lymphocytes # 0.9 L (1.0-4.8) k/uL INR 1.2 H (<1.2) Sodium 133 L (137-145) mmol/L Potassium 5.3 H (3.5-5.1) mmol/L Chloride 91 L (98-107) mmol/L Carbon Dioxide (22-30) mmol/L BUN 101 H* (9-20) mg/dL Creatinine 2.90 H (0.66-1.25) mg/dL Glucose 158 H (74-99) mg/dL Phosphorus 6.7 H (2.5-4.5) mg/dL Albumin (3.5-5.0) g/dL 10/07/17 10/07/17 Range/Units 06:25 06:25 WBC 17.3 H (3.8-10.6) k/uL RBC 3.76 L (4.30-5.90) m/uL Hgb 10.9 L (13.0-17.5) gm/dL Hct 33.9 L (39.0-53.0) % MCHC (31.0-37.0) g/dL Plt Count 503 H (150-450) k/uL Neutrophils # 14.6 H (1.3-7.7) k/uL Lymphocytes # (1.0-4.8) k/uL INR (<1.2) Sodium 132 L (137-145) mmol/L Potassium (3.5-5.1) mmol/L Chloride 97 L (98-107) mmol/L Carbon Dioxide 21 L (22-30) mmol/L BUN 104 H* (9-20) mg/dL Creatinine 2.72 H (0.66-1.25) mg/dL Glucose (74-99) mg/dL Phosphorus (2.5-4.5) mg/dL Albumin 3.3 L (3.5-5.0) g/dL Microbiology - Last 24 Hours (Table) 10/07/17 06:45 Urine Culture - Preliminary Urine,Voided Thrombosis Risk Factor Assmnt - Choose All That Apply Any of the Below Risk Factors Present?: Yes Each Factor Represents 1 point: Obesity (BMI >25) Other Risk Factors: Yes Each Risk Factor Represents 2 Points: Age 61-74 years Other congenital or acquired thrombophilia - If yes, enter type in comment: No Thrombosis Risk Factor Assessment Total Risk Factor Score: 3 Thrombosis Risk Factor Assessment Level: Moderate Risk Assessment and Plan Plan: ASSESSMENT: Generalized weakness and malaise with decreased oral intake, possible viral in nature, however etiology unclear at this time Acute on chronic kidney disease, stage III, baseline creatinine 1.5, creatinine on admission 2.9, suspected due to hypotension and overdiuresis per nephrology Near syncopal episode at home, multifocal etiology, may be secondary to decreased oral intake, hypotension, and/or over diuresis Leukocytosis, no evidence of sepsis at this time Chronic diastolic congestive heart failure, no evidence of acute exacerbation Chronic atrial fibrillation, maintained on long-term anticoagulation with Savaysa Hyponatremia Hyperkalemia, resolved Coronary artery disease Gastroesophageal reflux disease Essential hypertension Hyperlipidemia Obesity: BMI 33.7 History of nicotine dependence, in remission, patient quit smoking cigarettes in 2015 PLAN: -Nephrology on consult. Appreciate recommendations and input -Continue to hold Lasix -Continue to hold Lisinopril-HCTZ -1500cc fluid restriction per nephrology -Monitor telemetry -Metroprolol changed to 75mg BID secondary to episode of tachycardia -Home meds as appropriate -Monitor labs. Recheck in AM -GI prophylaxis: Protonix 40 mg by mouth daily -DVT prophylaxis: Savaysa 60mg PO daily -Monitor vital signs and address as appropriate -Discharge planning: Patient to return home when stable -Further recommendations pending patient's course Nurse practitioner note has been reviewed by physician. Signing provider agrees with the documented findings, assessment, and plan of care.
--- NOTE | 2017-10-07 14:49 | US ---
EXAMINATION TYPE: US kidneys/renal and bladder DATE OF EXAM: 10/07/2017 COMPARISON: NONE CLINICAL HISTORY: fran. EXAM MEASUREMENTS: Right Kidney: 10.9 x 6.7 x 5.4 cm Left Kidney: 12.1 x 5.8 x 4.9 cm Post Void Residual Volume: Not completed Right Kidney: Mildly dilated renal pelvis. Tiny echogenic foci throughout. ? tiny calculi Left Kidney: Tiny echogenic foci throughout. ? tiny calculi Bladder: enlarged. Bilateral Jets seen: Left only Normal Post Void Residual: Not completed. Floor is collecting urine. There is no ascites. IMPRESSION: Mild right hydronephrosis. Suspect bilateral nephrolithiasis. Correlate for possible right ureteral c alculus.
[2017-10-07] MEDS: DILTIAZEM CD 180 MG CAP.ER.24H PO SCH (16:30)
[2017-10-07] MEDS: METOPROLOL TARTRATE 25 MG TAB PO SCH (20:22)
[2017-10-08] MEDS: SODIUM CHLORIDE 0.9% 1,000 ML IV SCH ×4 (03:50→18:42)
[2017-10-08 06:53] LABS: Basophils # (A) 0.1 k/uL (0-0.2); Basophils % (A) 0 %; Eosinophils # (A) 0.2 k/uL (0-0.7); Eosinophils % (A) 1 %; HCT 34.3 % (39.0-53.0); HGB 10.9 gm/dL (13.0-17.5); Lymphocytes % (A) 7 %; MCH 29.3 pg (25.0-35.0); MCHC 31.9 g/dL (31.0-37.0); MCV 91.8 fL (80.0-100.0); Mean Platelet Volume 7.3; Monocytes # (A) 0.8 k/uL (0-1.0); Monocytes % (A) 5 %; Neutrophils # (A) 12.8 k/uL (1.3-7.7); Neutrophils % (A) 85 %; Platelet Count 456 k/uL (150-450); RBC 3.74 m/uL (4.30-5.90)
[2017-10-08 07:05] LABS: Albumin 3.3 g/dL (3.5-5.0); Magnesium 1.7 mg/dL (1.6-2.3); Potassium 4.1 mmol/L (3.5-5.1); Total Bilirubin 0.9 mg/dL (0.2-1.3); Total Protein 6.3 g/dL (6.3-8.2)
[2017-10-08] MEDS: EDOXABAN TOSYLATE 30 MG TABLET PO SCH (08:57)
[2017-10-08] MEDS: METOPROLOL TARTRATE 25 MG TAB PO SCH (08:57)
[2017-10-08] MEDS: DIGOXIN 125 MCG TAB PO SCH (08:57)
[2017-10-08] MEDS: PANTOPRAZOLE 40 MG TABLET PO SCH (08:57)
[2017-10-08] MEDS: ATORVASTATIN 80 MG TAB PO SCH (08:58)
[2017-10-08] MEDS: CYANOCOBALAMIN 500 MCG TAB PO SCH (08:58)
[2017-10-08] MEDS: ASPIRIN 81 MG PO SCH (08:58)
[2017-10-08] MEDS: TAMSULOSIN 0.4 MG CAP.ER.24H PO SCH (11:03)
--- NOTE | 2017-10-08 13:00 | P.PN ---
Subjective Patient is seen in follow-up for acute kidney injury. Patient has chronic kidney disease stage III with baseline creatinine near 1.5. Creatinine was 2.9 on admission and is down to 2.33 today. He was noted to have urinary retention - straight catheterization was done yesterday and over 1.5 L of urine was obtained. Hemodynamically stable. Oral intake is fair. No vomiting or diarrhea. Denies chest pain or shortness of breath. Vital signs are stable. General: The patient appeared well nourished and normally developed. HEENT: Head exam is unremarkable. Neck is without jugular venous distension. LUNGS: Lungs are clear to auscultation and percussion. Breath sounds decreased. HEART: Rate and Rhythm are regular. First and second heart sounds normal. No murmurs, rubs or gallops. ABDOMEN: Abdominal exam reveals normal bowel sounds. Non-tender and non- distended. No evidence of peritonitis. EXTREMITITES: No clubbing, cyanosis, or edema. Objective - Vital Signs Vital signs: Vital Signs Temp 97.5 F L 10/08/17 07:00 Pulse 100 10/08/17 07:00 Resp 16 10/08/17 07:00 BP 169/79 10/08/17 07:00 Pulse Ox 96 10/08/17 07:00 Intake & Output 10/07/17 10/08/17 10/08/17 18:59 06:59 18:59 Intake Total 800 920 Output Total 1900 960 Balance -1100 -40 Weight 103.419 kg 100 kg Intake: Intake, IV Titration 800 800 Amount Sodium Chloride 0.9% 1, 800 000 ml @ 100 mls/hr IV . Q10H ONE Rx#:[id number] Sodium Chloride 0.9% 1, 800 000 ml @ 100 mls/hr IV . Q10H LANG Rx#:[id number] Oral 120 Output: Urine 1900 960 Straight 1700 Other: Voiding Method Urinal Urinal Urinal # Voids 1 1 - Labs CBC & Chem 7: 10/08/17 06:25 10/08/17 06:25 Labs: Abnormal Lab Results - Last 24 Hours (Table) 10/08/17 10/08/17 Range/Units 06:25 06:25 WBC 15.0 H (3.8-10.6) k/uL RBC 3.74 L (4.30-5.90) m/uL Hgb 10.9 L (13.0-17.5) gm/dL Hct 34.3 L (39.0-53.0) % Plt Count 456 H (150-450) k/uL Neutrophils # 12.8 H (1.3-7.7) k/uL Sodium 134 L (137-145) mmol/L Carbon Dioxide 21 L (22-30) mmol/L BUN 91 H* (9-20) mg/dL Creatinine 2.33 H (0.66-1.25) mg/dL Albumin 3.3 L (3.5-5.0) g/dL Microbiology - Last 24 Hours (Table) 10/07/17 06:45 Urine Culture - Preliminary Urine,Voided Assessment and Plan Plan: Assessment: #1. Nonoliguric acute kidney injury secondary to ATN secondary to urinary retention. Hypotension and diaphoresis also contribute factor. Creatinine 2.9 at admission and is down to 2.33 today. Urinalysis is benign. Mild right- sided hydronephrosis noted on renal ultrasound. #2. Hypotension related to diuresis. Resolved. #3. History of diastolic CHF. Currently compensated. #4. Hyponatremia. Now appears euvolemic. Partially due to urinary retention. Improved. #5. Chronic kidney disease stage III with baseline creatinine near 1.5 secondary to nephrosclerosis. #6. Urinary retention. Plan: Continue normal saline at 100 mL an hour. Avoid nephrotoxic agents and hypotensive episodes. Diuretics held for now. Check postvoid residuals every 4 hours. If persistently has over 300 mL of retention then Kelley catheter will be placed. Flomax has been added. Encouraged oral intake. Repeat electrolytes in the morning.
--- NOTE | 2017-10-08 16:26 | P.PN ---
Subjective Progress Note Date: 10/08/17 72-year-old male who presented to the emergency room on 10/06/2017 after his called EMS secondary to the patient having a near syncopal episode. The patient states he has not been feeling well for the past few days and has felt weak. He denies shortness of breath, coughing, nausea, vomiting, diarrhea, chest pain or pressure. He states he can not pinpoint any symptoms, but has not felt like himself the past few days. He states he was eating and drinking at home but his oral intake has been less than his normal amount. The patient has a history of coronary artery disease, congestive heart failure, CVA/TIA, esophageal reflux disease, pneumonia, atrial fibrillation, and osteoarthritis. He is a former cigarette smoker and quit smoking 2015. In the emergency room, a chest x-ray was completed which negative for acute process. An EKG was completed revealing atrial fibrillation. Laboratory studies completed at that time reveal sodium 133, potassium 5.3, BUN 101, creatinine 2.9, white count 17.4, hemoglobin 12.4, platelet count 669, magnesium 2.0. Troponin negative 1. 10/08/2017 Patient seen and examined at the bedside on rounds with Dr. Muñoz. Patient is sitting at the side of the bed. Awake and alert. Denies chest pain or pressure. Denies shortness of breath. Denies nausea or vomiting. Patient states he has been voiding without difficulty but nursing states the patient is only voiding about 100cc at a time. He was bladder scanned yesterday for 999cc. He was straight cathed x1 with 1700 mL output. Patient states he did not feel an urge to void. He was also having a few episodes of incontinence yesterday. He continues to only void 100cc a time again this morning. Additional PVR to be ordered. Patient was tachycardiac with a rate in the 150s yesterday. Metroprolol was increased to 75mg BID. Nursing states the patient was in the 150s again this morning. Patient denies palpations or exertion. Urinalysis collected yesterday is negative. He underwent ultrasound of the kidneys which revealed mild right hydronephrosis, suspect bilateral nephrolithiasis, and possible right ureteral calculus. Objective - Vital Signs Vital signs: Vital Signs Temp 97.5 F L 10/08/17 07:00 Pulse 100 10/08/17 07:00 Resp 16 10/08/17 07:00 BP 169/79 10/08/17 07:00 Pulse Ox 96 10/08/17 07:00 Intake & Output 10/07/17 10/08/17 10/08/17 18:59 06:59 18:59 Intake Total 800 920 Output Total 1900 960 Balance -1100 -40 Weight 103.419 kg 100 kg Intake: Intake, IV Titration 800 800 Amount Sodium Chloride 0.9% 1, 800 000 ml @ 100 mls/hr IV . Q10H [facility] Rx#:[id number] Sodium Chloride 0.9% 1, 800 000 ml @ 100 mls/hr IV . Q10H [facility] Rx#:[id number] Oral 120 Output: Urine 1900 960 Straight 1700 Other: Voiding Method Urinal Urinal Urinal # Voids 1 1 - Exam GENERAL: This is a 72-year-old male in no apparent distress at the time of examination. Pleasant and cooperative. HEENT: Head is atraumatic, normocephalic. Pupils are equal, round, and reactive to light. Sclerae anicteric. Conjunctivae are clear. Mucus membranes of the mouth are moist. Neck is supple. RESPIRATORY: Clear to ausculation. No wheezes, rales, or rhonchi. No use of accessory muscles. Patient maintaining oxygen saturation greater than 92%. No chest wall tenderness is noted on palpation or with deep breathing. CARDIOVASCULAR: Regular rate and rhythm. S1 and S2 noted. No JVD noted. No S3 or S4 noted. GASTROINTESTINAL: No distention noted. Abdomen soft and round. Normal active bowel sounds auscultated x 4 quadrants. No pain or tenderness noted upon palpation. INTEGUMENTARY: No cyanosis. No jaundice. No rashes noted. No cellulitis noted. EXTREMITIES: 2+ peripheral pulses. No evidence of peripheral edema. No calf tenderness noted. NEUROLOGIC: Cranial nerves II-XII intact. PSYCHIATRIC: Awake, alert, and oriented X 3. Appropriate affect. Intact judgement and insight. - Labs CBC & Chem 7: 10/08/17 06:25 10/08/17 06:25 Labs: Abnormal Lab Results - Last 24 Hours (Table) 10/08/17 10/08/17 Range/Units 06:25 06:25 WBC 15.0 H (3.8-10.6) k/uL RBC 3.74 L (4.30-5.90) m/uL Hgb 10.9 L (13.0-17.5) gm/dL Hct 34.3 L (39.0-53.0) % Plt Count 456 H (150-450) k/uL Neutrophils # 12.8 H (1.3-7.7) k/uL Sodium 134 L (137-145) mmol/L Carbon Dioxide 21 L (22-30) mmol/L BUN 91 H* (9-20) mg/dL Creatinine 2.33 H (0.66-1.25) mg/dL Albumin 3.3 L (3.5-5.0) g/dL Microbiology - Last 24 Hours (Table) 10/07/17 06:45 Urine Culture - Preliminary Urine,Voided Assessment and Plan Plan: ASSESSMENT: Generalized weakness and malaise with decreased oral intake, possible viral in nature, however etiology unclear at this time Acute on chronic kidney disease, stage III, baseline creatinine 1.5, creatinine on admission 2.9, secondary to urinary retention Near syncopal episode at home, multifactorial etiology, may be secondary to decreased oral intake, hypotension, and/or over diuresis Leukocytosis, no evidence of sepsis at this time Chronic diastolic congestive heart failure, no evidence of acute exacerbation Chronic atrial fibrillation, maintained on long-term anticoagulation with Savaysa Urinary retention Hyponatremia, improving Hyperkalemia, resolved Coronary artery disease Gastroesophageal reflux disease Essential hypertension Hyperlipidemia Obesity: BMI 33.7 History of nicotine dependence, in remission, patient quit smoking cigarettes in 2016 PLAN: -Nephrology on consult. Appreciate recommendations and input -Continue to hold Lasix -Continue to hold Lisinopril-HCTZ -1500cc fluid restriction per nephrology -Obtain additional PVR today -Begin Flomax -Consult urology per Dr. Muñoz -Increase lopressor to 100mg BID -Consult cardiology per Dr. Muñoz -Monitor telemetry -Home meds as appropriate -Monitor labs. Recheck in AM -GI prophylaxis: Protonix 40 mg by mouth daily -DVT prophylaxis: Savaysa 30mg PO daily -Monitor vital signs and address as appropriate -Discharge planning: Patient to return home when stable -Further recommendations pending patient's course Nurse practitioner note has been reviewed by physician. Signing provider agrees with the documented findings, assessment, and plan of care.
[2017-10-08] MEDS: DILTIAZEM CD 180 MG CAP.ER.24H PO SCH (17:03)
[2017-10-08] MEDS: METOPROLOL TARTRATE 50 MG TAB PO SCH (20:10)
--- NOTE | 2017-10-08 21:41 | P.GSCN ---
History of Present Illness Consult date: 10/08/17 Reason for Consult: urine retention History of present illness: This 72 yo came in with syncope He was found to have a cr at 2.9 He was found to be in retention without awareness, He was drained for 1700 ml on straight cath A repeat cath identified over 1100ml without fullness. He denies problems voiding prior to the hospitalization He has no major back or bowel problems His urine was clear Review of Systems - Constitutional Reports as per HPI - Gastrointestinal Reports as per HPI - Genitourinary Reports as per HPI Past Medical History Past Medical History: Coronary Artery Disease (CAD), Heart Failure, CVA/TIA, GERD/Reflux, Osteoarthritis (OA), Pneumonia Additional Past Medical History / Comment(s): SEE DR FLORES'S H&P History of Any Multi-Drug Resistant Organisms: None Reported Past Surgical History: Orthopedic Surgery Additional Past Surgical History / Comment(s): RACHNA hand surgery FOR NERVE DAMAGE , colonoscopy, RT KNEE ARTHROSCOPY Past Anesthesia/Blood Transfusion Reactions: No Reported Reaction Past Psychological History: No Psychological Hx Reported Smoking Status: Former smoker Past Alcohol Use History: None Reported Additional Past Alcohol Use History / Comment(s): STOPPED SMOKING 06/2016, STARTED 1955 Past Drug Use History: None Reported - Past Family History Mother Family Medical History: Cancer Additional Family Medical History / Comment(s): LEUKEMIA Father Family Medical History: No Reported History Additional Family Medical History / Comment(s): PT STATED DAD FROM OLD AGE. Medications and Allergies Home Medications Medication Instructions Recorded Confirmed Type Lisinopril-Hctz 20-25 mg 1 tab PO DAILY 01/25/15 10/06/17 History [Zestoretic 20-25] Cyanocobalamin [Vitamin B-12] 500 mcg PO DAILY 06/30/15 10/06/17 History Atorvastatin [Lipitor] 80 mg PO DAILY #90 tab 07/04/15 10/06/17 Rx Edoxaban Tosylate [Savaysa] 60 mg PO DAILY #30 tablet 07/04/15 10/06/17 Rx Furosemide [Lasix] 40 mg PO BID@0900,1600 #60 tab 07/04/15 10/06/17 Rx Nitroglycerin Sl Tabs [Nitrostat] 0.4 mg SUBLINGUAL Q5M PRN #30 tab 07/04/15 Rx Potassium Chloride ER [K-Dur 10] 10 meq PO BID #60 tab.er.prt 07/04/15 10/06/17 Rx Digoxin [Lanoxin] 125 mcg PO DAILY 08/14/15 10/06/17 History Metoprolol Tartrate [Lopressor] 100 mg PO DAILY 01/11/16 10/06/17 History Aspirin 81 mg PO DAILY #30 chewable 01/15/16 10/06/17 Rx Albuterol Inhaler [Ventolin Hfa 1 - 2 puff INHALATION RT-Q6H PRN 11/02/16 History Inhaler] Diltiazem HCl [Diltiazem 24Hr ER] 180 mg PO DAILY@1600 11/02/16 10/06/17 History Allergies Allergy/AdvReac Type Severity Reaction Status Date / Time No Known Allergies Allergy Verified 10/06/17 16:15 Surgical - Exam Vital Signs Pulse Resp BP Pulse Ox 87 20 107/52 100 10/06/17 16:03 10/06/17 16:03 10/06/17 16:03 10/06/17 16:03 - General well developed, well nourished, no distress - ENT no hearing loss - Neck trachea midline - Respiratory normal expansion, normal respiratory effort - Abdomen Abdomen: soft, tender - Genitourinary HIs prostate is 30 gm broad and benign normal penis with no external lesions, testicles present - Rectum Rectum: normal sphincter tone - Integumentary no rash, no growths - Neurologic normal coordination, normal sensation - Psychiatric oriented to time, oriented to person, oriented to place, speech is normal, memory intact Results - Labs 10/08/17 06:25 10/08/17 06:25 Abnormal Lab Results - Last 24 Hours (Table) 10/08/17 10/08/17 Range/Units 06:25 06:25 WBC 15.0 H (3.8-10.6) k/uL RBC 3.74 L (4.30-5.90) m/uL Hgb 10.9 L (13.0-17.5) gm/dL Hct 34.3 L (39.0-53.0) % Plt Count 456 H (150-450) k/uL Neutrophils # 12.8 H (1.3-7.7) k/uL Sodium 134 L (137-145) mmol/L Carbon Dioxide 21 L (22-30) mmol/L BUN 91 H* (9-20) mg/dL Creatinine 2.33 H (0.66-1.25) mg/dL Albumin 3.3 L (3.5-5.0) g/dL Microbiology - Last 24 Hours (Table) 10/07/17 06:45 Urine Culture - Final Urine,Voided Diabetes panel 10/08/17 Range/Units 06:25 Sodium 134 L (137-145) mmol/L Potassium 4.1 (3.5-5.1) mmol/L Chloride 101 (98-107) mmol/L Carbon Dioxide 21 L (22-30) mmol/L BUN 91 H* (9-20) mg/dL Creatinine 2.33 H (0.66-1.25) mg/dL Glucose 97 (74-99) mg/dL Calcium 9.0 (8.4-10.2) mg/dL AST 23 (17-59) U/L ALT 45 (21-72) U/L Alkaline Phosphatase 115 (38-126) U/L Total Protein 6.3 (6.3-8.2) g/dL Albumin 3.3 L (3.5-5.0) g/dL Calcium panel 10/08/17 Range/Units 06:25 Calcium 9.0 (8.4-10.2) mg/dL Albumin 3.3 L (3.5-5.0) g/dL Pituitary panel 10/08/17 Range/Units 06:25 Sodium 134 L (137-145) mmol/L Potassium 4.1 (3.5-5.1) mmol/L Chloride 101 (98-107) mmol/L Carbon Dioxide 21 L (22-30) mmol/L BUN 91 H* (9-20) mg/dL Creatinine 2.33 H (0.66-1.25) mg/dL Glucose 97 (74-99) mg/dL Calcium 9.0 (8.4-10.2) mg/dL Adrenal panel 10/08/17 Range/Units 06:25 Sodium 134 L (137-145) mmol/L Potassium 4.1 (3.5-5.1) mmol/L Chloride 101 (98-107) mmol/L Carbon Dioxide 21 L (22-30) mmol/L BUN 91 H* (9-20) mg/dL Creatinine 2.33 H (0.66-1.25) mg/dL Glucose 97 (74-99) mg/dL Calcium 9.0 (8.4-10.2) mg/dL Total Bilirubin 0.9 (0.2-1.3) mg/dL AST 23 (17-59) U/L ALT 45 (21-72) U/L Alkaline Phosphatase 115 (38-126) U/L Total Protein 6.3 (6.3-8.2) g/dL Albumin 3.3 L (3.5-5.0) g/dL Assessment and Plan Assessment: Impression: Large volume urine retention without sensation of a full bladder. acute renal failure due to urine retention Plan: flomax,catheter drainage with bladder rest Eventual voiding trial
[2017-10-08 21:51] VITALS: RESP 18
[2017-10-09 07:01] LABS: Basophils # (A) 0.1 k/uL (0-0.2); Basophils % (A) 1 %; Eosinophils # (A) 0.2 k/uL (0-0.7); Eosinophils % (A) 2 %; HCT 31.1 % (39.0-53.0); HGB 9.9 gm/dL (13.0-17.5); Lymphocytes # (A) 1.1 k/uL (1.0-4.8); Lymphocytes % (A) 9 %; MCH 29.1 pg (25.0-35.0); MCHC 31.8 g/dL (31.0-37.0); MCV 91.5 fL (80.0-100.0); Mean Platelet Volume 6.8; Monocytes # (A) 0.9 k/uL (0-1.0); Monocytes % (A) 7 %; Neutrophils # (A) 10.6 k/uL (1.3-7.7); Neutrophils % (A) 81 %; Platelet Count 402 k/uL (150-450); RDW 13.5 % (11.5-15.5)
[2017-10-09 07:11] LABS: Calcium 8.9 mg/dL (8.4-10.2); Potassium 4.1 mmol/L (3.5-5.1); Total Bilirubin 0.8 mg/dL (0.2-1.3); Total Protein 5.8 g/dL (6.3-8.2)
[2017-10-09] MEDS: METOPROLOL TARTRATE 50 MG TAB PO SCH (07:39)
[2017-10-09] MEDS: ASPIRIN 81 MG PO SCH (07:39)
[2017-10-09] MEDS: SODIUM CHLORIDE 0.9% 1,000 ML IV SCH (07:40)
[2017-10-09] MEDS: ATORVASTATIN 80 MG TAB PO SCH (07:40)
[2017-10-09] MEDS: EDOXABAN TOSYLATE 30 MG TABLET PO SCH (07:40)
[2017-10-09] MEDS: TAMSULOSIN 0.4 MG CAP.ER.24H PO SCH (07:40)
[2017-10-09] MEDS: CYANOCOBALAMIN 500 MCG TAB PO SCH (07:40)
[2017-10-09] MEDS: PANTOPRAZOLE 40 MG TABLET PO SCH (07:40)
[2017-10-09] MEDS: DIGOXIN 125 MCG TAB PO SCH (07:40)
[2017-10-09 08:36] VITALS: BP 137/63; PULSE 97; TEMP 98.7
[2017-10-09] MEDS ORDERED: LISINOPRIL 20 MG TAB PO SCH (09:00)
--- NOTE | 2017-10-09 09:03 | P.PN ---
Subjective Progress Note Date: 10/09/17 72-year-old male who presented to the emergency room on 10/06/2017 after his called EMS secondary to the patient having a near syncopal episode. The patient states he has not been feeling well for the past few days and has felt weak. He denies shortness of breath, coughing, nausea, vomiting, diarrhea, chest pain or pressure. He states he can not pinpoint any symptoms, but has not felt like himself the past few days. He states he was eating and drinking at home but his oral intake has been less than his normal amount. The patient has a history of coronary artery disease, congestive heart failure, CVA/TIA, esophageal reflux disease, pneumonia, atrial fibrillation, and osteoarthritis. He is a former cigarette smoker and quit smoking 2015. In the emergency room, a chest x-ray was completed which negative for acute process. An EKG was completed revealing atrial fibrillation. Laboratory studies completed at that time reveal sodium 133, potassium 5.3, BUN 101, creatinine 2.9, white count 17.4, hemoglobin 12.4, platelet count 669, magnesium 2.0. Troponin negative 1. 10/08/2017 Patient seen and examined at the bedside on rounds with Dr. Muñoz. Patient is sitting at the side of the bed. Awake and alert. Denies chest pain or pressure. Denies shortness of breath. Denies nausea or vomiting. Patient states he has been voiding without difficulty but nursing states the patient is only voiding about 100cc at a time. He was bladder scanned yesterday for 999cc. He was straight cathed x1 with 1700 mL output. Patient states he did not feel an urge to void. He was also having a few episodes of incontinence yesterday. He continues to only void 100cc a time again this morning. Additional PVR to be ordered. Patient was tachycardiac with a rate in the 150s yesterday. Metroprolol was increased to 75mg BID. Nursing states the patient was in the 150s again this morning. Patient denies palpations or exertion. Urinalysis collected yesterday is negative. He underwent ultrasound of the kidneys which revealed mild right hydronephrosis, suspect bilateral nephrolithiasis, and possible right ureteral calculus. 10/09/2017 Patient seen and examined at the bedside on rounds with Dr. Muñoz. Patient states he is feeling well this morning. Yesterday, the patient continued to experience urinary retention and a indwelling urinary catheter was inserted with over 2900cc of urine returned. He was started on Flomax. Urology was consulted who recommended bladder rest and eventual voiding trial. His creatinine has improved to 1.62 from 2.33. Sodium is 137. Cardiology was consulted yesterday secondary to a few episodes of tachycardia with a heart rate in the 140s. His metroprolol has been increased to 100mg BID. He denies shortness of breath. He states he has a occasional cough that is nonproductive. He denies any chest pain. He states he is using his incentive spirometer but not as much as he should. Patient was encouraged to use 10 times an hour. Patient is tolerating PO intake without nausea or vomiting. Objective - Vital Signs Vital signs: Vital Signs Temp 98.7 F 10/09/17 07:00 Pulse 97 10/09/17 07:00 Resp 18 10/09/17 07:00 BP 137/63 10/09/17 07:00 Pulse Ox 93 L 10/09/17 07:00 Intake & Output 10/08/17 10/09/17 10/09/17 18:59 06:59 18:59 Intake Total 1577 1850 Output Total 2900 2500 Balance -1323 -650 Weight 101 kg Intake: Intake, IV Titration 800 1600 Amount Sodium Chloride 0.9% 1, 800 1600 000 ml @ 100 mls/hr IV . Q10H [facility] Rx#:[id number] Oral 777 250 Output: Urine 2900 2500 Uretheral (Kelley) 2500 Other: Voiding Method Indwelling Catheter Indwelling Catheter - Exam GENERAL: This is a 72-year-old male in no apparent distress at the time of examination. Pleasant and cooperative. HEENT: Head is atraumatic, normocephalic. Pupils are equal, round, and reactive to light. Sclerae anicteric. Conjunctivae are clear. Mucus membranes of the mouth are moist. Neck is supple. RESPIRATORY: Clear to ausculation. No wheezes, rales, or rhonchi. No use of accessory muscles. Patient maintaining oxygen saturation greater than 92%. No chest wall tenderness is noted on palpation or with deep breathing. CARDIOVASCULAR: Regular rate and rhythm. S1 and S2 noted. No JVD noted. No S3 or S4 noted. GASTROINTESTINAL: No distention noted. Abdomen soft and round. Normal active bowel sounds auscultated x 4 quadrants. No pain or tenderness noted upon palpation. INTEGUMENTARY: No cyanosis. No jaundice. No rashes noted. No cellulitis noted. EXTREMITIES: 2+ peripheral pulses. No evidence of peripheral edema. No calf tenderness noted. NEUROLOGIC: Cranial nerves II-XII intact. PSYCHIATRIC: Awake, alert, and oriented X 3. Appropriate affect. Intact judgement and insight. - Labs CBC & Chem 7: 10/09/17 06:41 10/09/17 06:41 Labs: Abnormal Lab Results - Last 24 Hours (Table) 10/09/17 10/09/17 Range/Units 06:41 06:41 WBC 13.0 H (3.8-10.6) k/uL RBC 3.40 L (4.30-5.90) m/uL Hgb 9.9 L (13.0-17.5) gm/dL Hct 31.1 L (39.0-53.0) % Neutrophils # 10.6 H (1.3-7.7) k/uL BUN 67 H (9-20) mg/dL Creatinine 1.62 H (0.66-1.25) mg/dL Total Protein 5.8 L (6.3-8.2) g/dL Albumin 3.0 L (3.5-5.0) g/dL Microbiology - Last 24 Hours (Table) 10/07/17 06:45 Urine Culture - Final Urine,Voided Assessment and Plan Plan: ASSESSMENT: Acute on chronic kidney disease, stage III, baseline creatinine 1.5, creatinine on admission 2.9, secondary to urinary retention Near syncopal episode at home, multifactorial etiology, may be secondary to acute renal failure and decreased oral intake Generalized weakness and malaise with decreased oral intake, likely secondary to ELIDA secondary to urinary retention Urinary retention Leukocytosis, no evidence of sepsis at this time, improving Chronic diastolic congestive heart failure, no evidence of acute exacerbation Chronic atrial fibrillation, maintained on long-term anticoagulation with Savaysa Hyponatremia, resolved Hyperkalemia, resolved Coronary artery disease Gastroesophageal reflux disease Essential hypertension Hyperlipidemia Obesity: BMI 33.7 History of nicotine dependence, in remission, patient quit smoking cigarettes in 2015 PLAN: -Nephrology on consult. Appreciate recommendations and input -Continue to hold Lasix and HCTZ -Will resume patients lisinopril 20mg daily -Continue Flomax -Discontinue IV fluids -Discontinue fluid restrictions -Cardiology on consult. Await further recommendations and input -Urology on consult. Appreciate recommendations and input -Possible voiding trial this afternoon if okay with urology -If urology does not think patient is ready for a voiding trial and urology is okay with patient going home with catheter, possible discharge this afternoon -GI prophylaxis: Protonix 40 mg by mouth daily -DVT prophylaxis: Savaysa 30mg PO daily -Monitor vital signs and address as appropriate -Discharge planning: Patient to return home when stable -Further recommendations pending patient's course Nurse practitioner note has been reviewed by physician. Signing provider agrees with the documented findings, assessment, and plan of care.
--- NOTE | 2017-10-09 10:02 | P.PN ---
Subjective Patient is seen in follow-up for acute kidney injury. Patient has chronic kidney disease stage III with baseline creatinine near 1.5. Creatinine was 2.9 on admission and is down to 1.62 today. He was noted to have urinary retention - over 1.5 L of urine was obtained with straight catheterization. He now has a Xavier catheter in place. Hemodynamically stable. Oral intake is fair. No vomiting or diarrhea. Denies chest pain or shortness of breath. Vital signs are stable. General: The patient appeared well nourished and normally developed. HEENT: Head exam is unremarkable. Neck is without jugular venous distension. LUNGS: Lungs are clear to auscultation and percussion. Breath sounds decreased. HEART: Rate and Rhythm are regular. First and second heart sounds normal. No murmurs, rubs or gallops. ABDOMEN: Abdominal exam reveals normal bowel sounds. Non-tender and non- distended. No evidence of peritonitis. EXTREMITITES: No clubbing, cyanosis, or edema. Objective - Vital Signs Vital signs: Vital Signs Temp 98.7 F 10/09/17 07:00 Pulse 97 10/09/17 07:00 Resp 18 10/09/17 07:00 BP 137/63 10/09/17 07:00 Pulse Ox 93 L 10/09/17 07:00 Intake & Output 10/08/17 10/09/17 10/09/17 18:59 06:59 18:59 Intake Total 1577 1850 Output Total 2900 2500 Balance -1323 -650 Weight 101 kg Intake: Intake, IV Titration 800 1600 Amount Sodium Chloride 0.9% 1, 800 1600 000 ml @ 100 mls/hr IV . Q10H [facility] Rx#:[id number] Oral 777 250 Output: Urine 2900 2500 Uretheral (Xavier) 2500 Other: Voiding Method Indwelling Catheter Indwelling Catheter - Labs CBC & Chem 7: 10/09/17 06:41 10/09/17 06:41 Labs: Abnormal Lab Results - Last 24 Hours (Table) 10/09/17 10/09/17 Range/Units 06:41 06:41 WBC 13.0 H (3.8-10.6) k/uL RBC 3.40 L (4.30-5.90) m/uL Hgb 9.9 L (13.0-17.5) gm/dL Hct 31.1 L (39.0-53.0) % Neutrophils # 10.6 H (1.3-7.7) k/uL BUN 67 H (9-20) mg/dL Creatinine 1.62 H (0.66-1.25) mg/dL Total Protein 5.8 L (6.3-8.2) g/dL Albumin 3.0 L (3.5-5.0) g/dL Microbiology - Last 24 Hours (Table) 10/07/17 06:45 Urine Culture - Final Urine,Voided Assessment and Plan Plan: Assessment: #1. Nonoliguric acute kidney injury secondary to ATN secondary to urinary retention. Hypotension and diuresis also contributing factors. Creatinine 2.9 at admission and is down to 1.62 today. Urinalysis is benign. Mild right- sided hydronephrosis noted on renal ultrasound. #2. Hypotension related to diuresis. Resolved. #3. History of diastolic CHF. Currently compensated. #4. Hyponatremia. Now appears euvolemic. Partially due to urinary retention. Improved. #5. Chronic kidney disease stage III with baseline creatinine near 1.5 secondary to nephrosclerosis. #6. Urinary retention s/p xavier catheter placement. Urology following. Plan: Decrease rate of NS to 50 cc/hr. Avoid nephrotoxic agents and hypotensive episodes. Diuretics held for now. Flomax has been added. Encouraged oral intake. Repeat electrolytes in the morning.
[2017-10-09] MEDS ORDERED: SODIUM CHLORIDE 0.9% 1,000 ML IV SCH (10:15)
--- NOTE | 2017-10-09 12:34 | P.CRDCN ---
History of Present Illness Consult date: 10/09/17 History of present illness: Mr. Alfaro is a pleasant 72-year-old male past medical history significant for chronic persistent atrial fibrillation on usp anticoagulation with savaysa, chronic renal failure, hypertension, dilated cardiomyopathy and dyslipidemia. He follows with Dr. Penaloza in the office. We have been asked to see him in consultation during this hospital admission for 2 episodes of atiral fibrillation with rapid uncontrolled ventricular rate. During these episodes he is unaware of any symptoms. He denies palpitations, chest pain, shortness of breath, dizziness or nausea/vomiting. Per the last office note he was supposed to be taking lopressor 100mg PO BID but since coming into the hospital his dose was recorded as 100mg daily. This may be a contributing factor to his uncontrolled rate. Laboratory data reviewed, I blood cell count 13, hemoglobin 9.9, platelets 402, creatinine 1.62 down from 2.9 on admission, were 0.1, magnesium 2. Current cardiac medications include aspirin 81 mg daily atorvastatin 80 mg daily , digoxin 125 g daily, Cardizem 180 mg daily, savaysa 30 mg daily, lisinopril 20 mg daily and metoprolol 100 mg twice a day. Lasix and hydrochlorothiazide have been held as well as savaysa dose decreased secondary to renal function. Most recent echocardiogram from the office May 2017 reveals preserved systolic left ventricular function with ejection fraction 55%, moderately dilated left atrium and mild mitral regurgitation. The recent Lexiscan stress test was reviewed from 2014 reveals no signs of reversible cardiac ischemia. Review of Systems At the time of my exam: CONSTITUTIONAL: Denies fever. Denies chills. EYES: Denies blurred vision. Denies vision changes. Denies eye pain. EARS, NOSE, MOUTH & THROAT: Denies headache. Denies sore throat. Denies ear pain. CARDIOVASCULAR: Denies chest pain. Denies shortness of breath. Denies orthopnea. Denies PND. Denies palpitations. RESPIRATORY: Denies cough. GASTROINTESTINAL: Denies abdominal pain. Denies diarrhea. Denies constipation. Denies nausea. Denies vomiting. MUSCULOSKELETAL: Denies myalgias. INTEGUMENTARY: Denies pruitis. Denies rash. NEUROLOGIC: Denies numbness. Denies tingling. Denies weakness. PSYCHIATRIC: Denies anxiety. Denies depression. ENDOCRINE: Denies fatigue. Denies weight change. Denies polydipsia. Denies polyurina. GENITOURINARY: Denies burning, hematuria or urgency with micturation. HEMATOLOGIC: Denies history of anemia. Denies bleeding. Past Medical History Past Medical History: Coronary Artery Disease (CAD), Heart Failure, CVA/TIA, GERD/Reflux, Osteoarthritis (OA), Pneumonia Additional Past Medical History / Comment(s): SEE DR FLORES'S H&P History of Any Multi-Drug Resistant Organisms: None Reported Past Surgical History: Orthopedic Surgery Additional Past Surgical History / Comment(s): RACHNA hand surgery FOR NERVE DAMAGE , colonoscopy, RT KNEE ARTHROSCOPY Past Anesthesia/Blood Transfusion Reactions: No Reported Reaction Past Psychological History: No Psychological Hx Reported Smoking Status: Former smoker Past Alcohol Use History: None Reported Additional Past Alcohol Use History / Comment(s): STOPPED SMOKING 06/2016, STARTED 1955 Past Drug Use History: None Reported - Past Family History Mother Family Medical History: Cancer Additional Family Medical History / Comment(s): LEUKEMIA Father Family Medical History: No Reported History Additional Family Medical History / Comment(s): PT STATED DAD FROM OLD AGE. Medications and Allergies Home Medications Medication Instructions Recorded Confirmed Type Lisinopril-Hctz 20-25 mg 1 tab PO DAILY 01/25/15 10/06/17 History [Zestoretic 20-25] Cyanocobalamin [Vitamin B-12] 500 mcg PO DAILY 06/30/15 10/06/17 History Atorvastatin [Lipitor] 80 mg PO DAILY #90 tab 07/04/15 10/06/17 Rx Nitroglycerin Sl Tabs [Nitrostat] 0.4 mg SUBLINGUAL Q5M PRN #30 tab 07/04/15 Rx Digoxin [Lanoxin] 125 mcg PO DAILY 08/14/15 10/06/17 History Aspirin 81 mg PO DAILY #30 chewable 01/15/16 10/06/17 Rx Albuterol Inhaler [Ventolin Hfa 1 - 2 puff INHALATION RT-Q6H PRN 11/02/16 History Inhaler] Diltiazem HCl [Diltiazem 24Hr ER] 180 mg PO DAILY@1600 11/02/16 10/06/17 History Edoxaban Tosylate [Savaysa] 30 mg PO DAILY #30 tablet 10/09/17 Rx Metoprolol Tartrate [Lopressor] 100 mg PO BID #120 tab 10/09/17 Rx Tamsulosin [Flomax] 0.4 mg PO PC-BRKFST #30 cap 10/09/17 Rx Allergies Allergy/AdvReac Type Severity Reaction Status Date / Time No Known Allergies Allergy Verified 10/06/17 16:15 Physical Exam Vitals: Vital Signs Temp Pulse Resp BP Pulse Ox 10/09/17 07:00 98.7 F 97 18 137/63 93 L 10/08/17 21:50 98.9 F 104 H 18 120/63 94 L 10/08/17 15:00 97.8 F 96 131/57 97 Intake and Output 10/08/17 10/09/17 10/09/17 22:59 06:59 14:59 Intake Total 800 1050 Output Total 4200 1200 Balance -3400 -150 Intake: Intake, IV Titration 800 800 Amount Sodium Chloride 0.9% 1, 800 800 000 ml @ 100 mls/hr IV . Q10H [facility] Rx#:[id number] Oral 250 Output: Urine 4200 1200 Uretheral (Kelley) 1300 1200 Other: Voiding Method Indwelling Catheter Indwelling Catheter Indwelling Catheter Weight 101 kg Blood pressure 137/63 heart rate 97 afebrile GENERAL: This is a 72-year-old male in no apparent distress at the time of my examination. HEENT: Head is atraumatic, normocephalic. Pupils are equal, round. Sclerae anicteric. Conjunctivae are clear. Mucous membranes of the mouth are moist. Neck is supple. There is no jugular venous distention. No carotid bruit is heard. LUNGS: Clear to auscultation no wheezes, rales or rhonchi. No chest wall tenderness is noted on palpation or with deep breathing. HEART: Irregular rate and rhythm without murmurs, rubs or gallops. S1 and S2 heard. ABDOMEN: Soft, nontender. Bowel sounds are heard. No organomegaly noted. EXTREMITIES: No evidence of peripheral edema and no calf tenderness noted. VASCULAR: Radial and dorsalis pedis pulses palpated, no evidence of clubbing. NEUROLOGIC: Patient is awake, alert and oriented x3. Results 10/09/17 06:41 10/09/17 06:41 Cardiac Enzymes 10/09/17 Range/Units 06:41 AST 22 (17-59) U/L CBC 10/09/17 Range/Units 06:41 WBC 13.0 H (3.8-10.6) k/uL RBC 3.40 L (4.30-5.90) m/uL Hgb 9.9 L (13.0-17.5) gm/dL Hct 31.1 L (39.0-53.0) % Plt Count 402 (150-450) k/uL Comprehensive Metabolic Panel 10/09/17 Range/Units 06:41 Sodium 137 (137-145) mmol/L Potassium 4.1 (3.5-5.1) mmol/L Chloride 103 (98-107) mmol/L Carbon Dioxide 24 (22-30) mmol/L BUN 67 H (9-20) mg/dL Creatinine 1.62 H (0.66-1.25) mg/dL Glucose 98 (74-99) mg/dL Calcium 8.9 (8.4-10.2) mg/dL AST 22 (17-59) U/L ALT 41 (21-72) U/L Alkaline Phosphatase 105 (38-126) U/L Total Protein 5.8 L (6.3-8.2) g/dL Albumin 3.0 L (3.5-5.0) g/dL Current Medications Generic Name Dose Route Start Last Admin Trade Name Freq PRN Reason Stop Dose Admin Albuterol Sulfate 2.5 mg 10/06/17 21:03 Ventolin Nebulized INHALATION RT-Q6H PRN Shortness Of Breath Aspirin 81 mg 10/07/17 09:00 10/09/17 07:39 Aspirin PO 81 mg DAILY L[facility] Administration Atorvastatin Calcium 80 mg 10/07/17 09:00 10/09/17 07:40 Lipitor PO 80 mg DAILY LANG Administration Cyanocobalamin 500 mcg 10/07/17 12:00 10/09/17 07:40 Vitamin B-12 PO 500 mcg DAILY@1200 LANG Administration Digoxin 125 mcg 10/07/17 09:00 10/09/17 07:40 Lanoxin PO 125 mcg DAILY LANG Administration Diltiazem HCl 180 mg 10/07/17 16:00 10/08/17 17:03 Cardizem Cd PO 180 mg DAILY@1600 LANG Administration Edoxaban 30 mg 10/08/17 09:00 10/09/17 07:40 Savaysa PO 30 mg DAILY LANG Administration Sodium Chloride 1,000 mls @ 50 mls/hr 10/09/17 10:15 10/09/17 10:08 Saline 0.9% IV 50 mls/hr .Q20H [facility] Administration Lisinopril 20 mg 10/09/17 09:00 10/09/17 10:08 Zestril PO 20 mg DAILY LANG Administration Metoprolol Tartrate 100 mg 10/08/17 21:00 10/09/17 07:39 Lopressor PO 100 mg BID LANG Administration Nitroglycerin 0.4 mg 10/06/17 21:03 Nitrostat SUBLINGUAL Q5M PRN Chest Pain Pantoprazole Sodium 40 mg 10/07/17 07:30 10/09/17 07:40 Protonix PO 40 mg AC-BRKFST [facility] Administration Tamsulosin HCl 0.4 mg 10/08/17 10:30 10/09/17 07:40 Flomax PO 0.4 mg PC-BRKFST LANG Administration Intake and Output 10/08/17 10/09/17 10/09/17 22:59 06:59 14:59 Intake Total 800 1050 Output Total 4200 1200 Balance -3400 -150 Intake: Intake, IV Titration 800 800 Amount Sodium Chloride 0.9% 1, 800 800 000 ml @ 100 mls/hr IV . Q10H [facility] Rx#:[id number] Oral 250 Output: Urine 4200 1200 Uretheral (Kelley) 1300 1200 Other: Voiding Method Indwelling Catheter Indwelling Catheter Indwelling Catheter Weight 101 kg 10/09/17 06:41 10/09/17 06:41 Assessment and Plan Assessment: ASSESSMENT 1. Chronic persistent atrial fibrillation with uncontrolled ventricular response on long-term anticoagulation with savaysa 2. History of dilated cardiomyopathy 3. Essential hypertension 4. Dyslipidemia 5. Chronic renal failure, stage 3a PLAN Heart rate is controlled on current dose of beta chris. Continue cardizem and digoxin at previously prescribed doses as well. Check TSH. Nephrology recommendations for appropriate diuretics secondary to renal function. Follow up with Dr. Penaloza at regularly scheduled appointment. The above impression and plan of care have been discussed and directed by the signing physician. Martha Rosa, nurse practitioner, acting as scribe for signing physician.
--- NOTE | 2017-10-09 12:38 | P.DS ---
Providers Date of admission: 10/06/17 18:29 Expected date of discharge: 10/09/17 Attending physician: Akash Muñoz Consults: 10/07/17 08:25 Consult Physician Routine Consulting Provider: Susan Singh Consult Reason/Comments: ELIDA Do you want consulting provider notified?: Yes 10/08/17 13:47 Consult Physician Routine Consulting Provider: Rufino Gaspar Consult Reason/Comments: urinary retention, nephrolithiasis, hydronephrosis Do you want consulting provider notified?: Yes 10/08/17 13:49 Consult Physician Routine Consulting Provider: Jordan Morales Consult Reason/Comments: afib with RVR Do you want consulting provider notified?: Already Contacted Primary care physician: Akash [facility] Course: 72-year-old male who presented to the emergency room on 10/06/2017 after his called EMS secondary to the patient having a near syncopal episode. The patient states he has not been feeling well for the past few days and has felt weak. He denies shortness of breath, coughing, nausea, vomiting, diarrhea, chest pain or pressure. He states he can not pinpoint any symptoms, but has not felt like himself the past few days. He states he was eating and drinking at home but his oral intake has been less than his normal amount. The patient has a history of coronary artery disease, congestive heart failure, CVA/TIA, esophageal reflux disease, pneumonia, atrial fibrillation, and osteoarthritis. He is a former cigarette smoker and quit smoking 2016. In the emergency room, a chest x-ray was completed which negative for acute process. An EKG was completed revealing atrial fibrillation. Laboratory studies completed at that time reveal sodium 133, potassium 5.3, BUN 101, creatinine 2.9, white count 17.4, hemoglobin 12.4, platelet count 669, magnesium 2.0. Troponin negative 1. The patient was found to have urinary retention during hospitalization. Patient states he has been voiding without difficulty but nursing states the patient is only voiding about 100cc at a time. He was bladder scanned for 999cc. He was straight cathed x1 with 1700 mL output. Patient states he did not feel an urge to void. He was also having a few episodes of incontinence. The following day, the patient continued to only void 100 mL at a time. He was bladder scanned revealing a large amount of urine present. An indwelling urinary catheter was inserted with 2900 mL of urine returned. He underwent ultrasound of the kidneys which revealed mild right hydronephrosis, suspect bilateral nephrolithiasis, and possible right ureteral calculus. Urinalysis was negative. Urine culture is negative at 18 hour keisha. Urology was consulted. The patient was started on Flomax. Urology recommended bladder rest and eventual voiding trial. The patient had a few episodes of tachycardia with a heart rate in the 150s. Upon admission, the patient stated he was taking 100 mg of metoprolol daily. This was increased to 75 mg twice a day. The patient had another episode of tachycardia and his metoprolol was increased to 100 mg twice a day. The patient was taking Savaysa 60mg daily. Due to the patient's renal function , his dose was decreased to 30 mg daily. The patient's Lasix was held during hospitalization. The patient states he was taking 40 mg by mouth twice a day. Spoke with Martha Rosa NP with cardiology who states at the last office visit patient was prescribed 20mg BID, not 40mg BID. The patient also takes lisinopril-HCTZ. Nephrology was following patient during hospitalization. His sodium was low at 132-133 and he was placed on a fluid restriction. His sodium has now improved to 137. His creatinine is down to 1.62 which is near the patient's baseline. The patient was deemed stable for discharge. He is to follow up on an outpatient basis with urology. He is being discharged home with his indwelling urinary catheter. He is also to follow-up with nephrology and cardiology. Prescriptions were sent to the patient's preferred pharmacy for Flomax 0.4 mg daily, Savaysa 30mg daily, lasix 20mg daily, and metoprolol 100 mg twice a day. He is to resume his lisinopril-HCTZ at the time of discharge. His Lasix dose will be decreased to 20 mg daily. His potassium supplement will be discontinued at this time secondary to hyperkalemia upon admission. Patient was given a prescription for basic metabolic panel to be completed in one week to follow-up on renal function, potassium levels, and sodium level. Discharge diagnosis Acute on chronic kidney disease, stage III, baseline creatinine 1.5, creatinine on admission 2.9, secondary to urinary retention Near syncopal episode at home, multifactorial etiology, may be secondary to acute renal failure and decreased oral intake Generalized weakness and malaise with decreased oral intake, likely secondary to ELIDA secondary to urinary retention Urinary retention Leukocytosis, no evidence of sepsis at this time, improving Chronic diastolic congestive heart failure, no evidence of acute exacerbation Chronic atrial fibrillation, maintained on long-term anticoagulation with Savaysa Hyponatremia, resolved Hyperkalemia, resolved Coronary artery disease Gastroesophageal reflux disease Essential hypertension Hyperlipidemia Obesity: BMI 33.7 History of nicotine dependence, in remission, patient quit smoking cigarettes in 2016 Nurse practitioner note has been reviewed by physician. Signing provider agrees with the documented findings, assessment, and plan of care. Patient Condition at Discharge: Stable Plan - Discharge Summary New Discharge Prescriptions: New Edoxaban Tosylate [Savaysa] 30 mg PO DAILY #30 tablet Tamsulosin [Flomax] 0.4 mg PO PC-BRKFST #30 cap Metoprolol Tartrate [Lopressor] 100 mg PO BID #120 tab Furosemide [Lasix] 20 mg PO DAILY #30 tab Continue Lisinopril-Hctz 20-25 mg [Zestoretic 20-25] 1 tab PO DAILY Cyanocobalamin [Vitamin B-12] 500 mcg PO DAILY Atorvastatin [Lipitor] 80 mg PO DAILY #90 tab Nitroglycerin Sl Tabs [Nitrostat] 0.4 mg SUBLINGUAL Q5M PRN #30 tab PRN Reason: Chest Pain Digoxin [Lanoxin] 125 mcg PO DAILY Aspirin 81 mg PO DAILY #30 chewable Albuterol Inhaler [Ventolin Hfa Inhaler] 1 - 2 puff INHALATION RT-Q6H PRN PRN Reason: Shortness Of Breath Diltiazem HCl [Diltiazem 24Hr ER] 180 mg PO DAILY@1600 Discontinued Edoxaban Tosylate [Savaysa] 60 mg PO DAILY #30 tablet Furosemide [Lasix] 40 mg PO BID@0900,1600 #60 tab Potassium Chloride ER [K-Dur 10] 10 meq PO BID #60 tab.er.prt Metoprolol Tartrate [Lopressor] 100 mg PO DAILY Discharge Medication List Lisinopril-Hctz 20-25 mg [Zestoretic 20-25] 1 tab PO DAILY 01/25/15 [History] Cyanocobalamin [Vitamin B-12] 500 mcg PO DAILY 06/30/15 [History] Atorvastatin [Lipitor] 80 mg PO DAILY #90 tab 07/04/15 [Rx] Nitroglycerin Sl Tabs [Nitrostat] 0.4 mg SUBLINGUAL Q5M PRN #30 tab 07/04/15 [Rx ] Digoxin [Lanoxin] 125 mcg PO DAILY 08/14/15 [History] Aspirin 81 mg PO DAILY #30 chewable 01/15/16 [Rx] Albuterol Inhaler [Ventolin Hfa Inhaler] 1 - 2 puff INHALATION RT-Q6H PRN [History] Diltiazem HCl [Diltiazem 24Hr ER] 180 mg PO DAILY@1600 11/02/16 [History] Edoxaban Tosylate [Savaysa] 30 mg PO DAILY #30 tablet 10/09/17 [Rx] Furosemide [Lasix] 20 mg PO DAILY #30 tab 10/09/17 [Rx] Metoprolol Tartrate [Lopressor] 100 mg PO BID #120 tab 10/09/17 [Rx] Tamsulosin [Flomax] 0.4 mg PO PC-BRKFST #30 cap 10/09/17 [Rx] Follow up Appointment(s)/Referral(s): Akash Muñoz DO [Primary Care Provider] - 1 Week Jet Jones DO [STAFF PHYSICIAN] - 2 Weeks Jordan Morales MD [STAFF PHYSICIAN] - 2 Weeks Eliceo Alaniz MD [STAFF PHYSICIAN] - 3 Days Ambulatory/Diagnostic Orders: Basic Metabolic Panel [LAB.AMB] Location: Determined By Patient Discharge Disposition: HOME SELF-CARE
[2017-10-09 13:59] LABS: T4, Free (Free Thyroxine) 1.81 ng/dL (0.78-2.19)
== END 2017-10-09 16:25 | disposition home or self-care (01) | DRG 683 ==
LOC: EC 15:51 → 5MS5E 18:29
PROVIDERS: ADMIT Family Medicine; ATTEND Family Medicine
DX: N17.0 Acute kidney failure with tubular necrosis (principal); I13.0 Hypertensive heart and chronic kidney disease with heart failure and stage 1 through stage 4 chronic kidney disease, or unspecified chronic kidney disease; I95.9 Hypotension, unspecified; E87.5 Hyperkalemia; E87.1 Hypo-osmolality and hyponatremia; I48.1 Persistent atrial fibrillation; I50.32 Chronic diastolic (congestive) heart failure; R55 Syncope and collapse; N13.2 Hydronephrosis with renal and ureteral calculous obstruction; I48.2 Chronic atrial fibrillation; I25.10 Atherosclerotic heart disease of native coronary artery without angina pectoris; K21.9 Gastro-esophageal reflux disease without esophagitis; M19.90 Unspecified osteoarthritis, unspecified site; N18.3 Chronic kidney disease, stage 3 (moderate); E86.0 Dehydration; T50.2X5A Adverse effect of carbonic-anhydrase inhibitors, benzothiadiazides and other diuretics, initial encounter; E78.5 Hyperlipidemia, unspecified; E66.9 Obesity, unspecified; F17.201 Nicotine dependence, unspecified, in remission; R32 Unspecified urinary incontinence; R00.0 Tachycardia, unspecified; Z86.73 Personal history of transient ischemic attack (TIA), and cerebral infarction without residual deficits; Z80.6 Family history of leukemia; Z79.899 Other long term (current) drug therapy; Z79.82 Long term (current) use of aspirin; Z79.01 Long term (current) use of anticoagulants; Z68.33 Body mass index [BMI] 33.0-33.9, adult; Z87.01 Personal history of pneumonia (recurrent)
CPT/HCPCS: 36415; 71046; 76770; 80053; 81003; 82550; 82553; 83735; 84100; 84439; 84443; 84484; 85025; 85610; 85730; 87086; 93005; 96360; 99285

== ENCOUNTER 2017-11-07 03:57 | Inpatient (IN) | payer MEDICARE ==
[2017-11-07] MEDS ORDERED: IPRATROPIUM-ALBUTEROL 3 ML NEB INHALATION STA (04:48)
--- NOTE | 2017-11-07 04:50 | ED ---
General Adult HPI - General Chief complaint: Upper Respiratory Infection Stated complaint: cough, chest congestion Time Seen by Provider: 11/07/17 04:34 Source: patient, family, RN notes reviewed Mode of arrival: wheelchair Limitations: no limitations - History of Present Illness Initial comments: Patient is a pleasant 72-year-old male presenting to the emergency department with complaints of cough. Symptoms started a couple of days ago. Patient did have some rattling in his chest. Patient states there was some productive sputum today however unclear in color. No fever. Patient recently finished antibiotics for urinary tract infection. Patient feels mildly short of breath. No history of chronic lung problems. - Related Data Home Medications Medication Instructions Recorded Confirmed Cyanocobalamin [Vitamin B-12] 500 mcg PO DAILY 06/30/15 10/23/17 Digoxin [Lanoxin] 125 mcg PO DAILY 08/14/15 10/23/17 Albuterol Inhaler [Ventolin Hfa 1 - 2 puff INHALATION RT-Q6H PRN 11/02/16 Inhaler] Diltiazem HCl [Diltiazem 24Hr ER] 180 mg PO DAILY@1600 11/02/16 10/23/17 Previous Rx's Medication Instructions Recorded Atorvastatin [Lipitor] 80 mg PO DAILY #90 tab 07/04/15 Nitroglycerin Sl Tabs [Nitrostat] 0.4 mg SUBLINGUAL Q5M PRN #30 tab 07/04/15 Edoxaban Tosylate [Savaysa] 30 mg PO DAILY #30 tablet 10/09/17 Metoprolol Tartrate [Lopressor] 100 mg PO BID #120 tab 10/09/17 Tamsulosin [Flomax] 0.4 mg PO PC-BRKFST #30 cap 10/09/17 Acetaminophen Tab [Tylenol] 650 mg PO Q6HR PRN tab 10/29/17 Levofloxacin [Levaquin] 500 mg PO Q24H #7 tab 10/29/17 Allergies Allergy/AdvReac Type Severity Reaction Status Date / Time No Known Allergies Allergy Verified 10/23/17 12:05 Review of Systems ROS Statement: Those systems with pertinent positive or pertinent negative responses have been documented in the HPI. ROS Other: All systems not noted in ROS Statement are negative. Constitutional: Denies: fever Eyes: Denies: eye pain ENT: Denies: ear pain Respiratory: Reports: cough, dyspnea Cardiovascular: Denies: chest pain Endocrine: Reports: fatigue Gastrointestinal: Denies: abdominal pain Genitourinary: Denies: dysuria Musculoskeletal: Denies: back pain Skin: Denies: rash Neurological: Denies: weakness Past Medical History Past Medical History: Coronary Artery Disease (CAD), Heart Failure, GERD/Reflux , Osteoarthritis (OA), Pneumonia, Renal Disease Additional Past Medical History / Comment(s): urinary retention has idc History of Any Multi-Drug Resistant Organisms: None Reported Past Surgical History: Orthopedic Surgery Additional Past Surgical History / Comment(s): RACHNA hand surgery FOR NERVE DAMAGE , colonoscopy, RT KNEE ARTHROSCOPY Past Anesthesia/Blood Transfusion Reactions: No Reported Reaction Past Psychological History: No Psychological Hx Reported Smoking Status: Former smoker Past Alcohol Use History: None Reported Past Drug Use History: None Reported - Past Family History Mother Family Medical History: Cancer Additional Family Medical History / Comment(s): LEUKEMIA Father Family Medical History: No Reported History Additional Family Medical History / Comment(s): PT STATED DAD FROM OLD AGE. General Exam Limitations: no limitations General appearance: alert, in no apparent distress Head exam: Present: atraumatic Eye exam: Present: normal appearance, PERRL ENT exam: Present: normal oropharynx Neck exam: Present: normal inspection Respiratory exam: Present: wheezes, rales (Mild right base) Cardiovascular Exam: Present: regular rate, normal rhythm GI/Abdominal exam: Present: soft. Absent: tenderness Extremities exam: Present: normal inspection. Absent: pedal edema, calf tenderness Neurological exam: Present: alert Psychiatric exam: Present: normal affect, normal mood Skin exam: Present: normal color Course Vital Signs 11/07/17 11/07/17 11/07/17 04:01 05:04 05:14 Temperature 97.9 F Pulse Rate 95 88 92 Respiratory 16 Rate Blood Pressure 124/70 O2 Sat by Pulse 95 Oximetry Medical Decision Making - Medical Decision Making Patient reevaluated and still was not feeling all that well. Lung sounds unchanged. Patient is not comfortable with discharge. Dr Muñoz has been paged for admission. - Lab Data Lab Results 11/07/17 Range/Units 04:54 Influenza Type A RNA Not Detected (Not Detectd) Influenza Type B (PCR) Not Detected (Not Detectd) - Radiology Data Radiology results: image reviewed (Chest x-ray shows peribronchial infiltrates on the right which could represent bronchiolitis early pneumonia.) Disposition Clinical Impression: Pneumonia Disposition: ADMITTED IP TO THIS HOSP Referrals: Akash Muñoz DO [Primary Care Provider] - 1-2 days Decision Time: 06:13
--- NOTE | 2017-11-07 06:07 | XR ---
EXAM: XR Chest, 2 Views CLINICAL HISTORY: ITS.REASON XR Reason: Chest Pain TECHNIQUE: Frontal and lateral views of the chest. COMPARISON: 10/23/2017 FINDINGS: Lungs: Mild peribronchial infiltrates in the right upper and lower lobe. Mild interstitial prominence. No consolidation. Pleural space: Unremarkable. No pneumothorax. Heart: Mild cardiomegaly. Mediastinum: Unremarkable. Bones/joints: Unremarkable. IMPRESSION: 1. Mild interstitial prominence with peribronchial infiltrates in the right upper and lower lobes. Query bronchiolitis or early pneumonia.
[2017-11-07] MEDS ORDERED: PNEUMONIA PROTOCOL UTILIZED 1 EACH MISC PO PRN (06:13)
[2017-11-07] MEDS ORDERED: IPRATROPIUM-ALBUTEROL 3 ML NEB INHALATION PRN (06:13)
[2017-11-07 06:42] LABS: Basophils % (A) 1 %; Hypochromasia Slight
[2017-11-07 06:50] LABS: Eosinophils # (A) 0.2 k/uL (0-0.7); Eosinophils % (A) 3 %; HCT 30.3 % (39.0-53.0); HGB 9.4 gm/dL (13.0-17.5); Lymphocytes # (A) 0.7 k/uL (1.0-4.8); Lymphocytes % (A) 8 %; MCH 28.1 pg (25.0-35.0); MCHC 31.1 g/dL (31.0-37.0); MCV 90.5 fL (80.0-100.0); Mean Platelet Volume 6.7; Monocytes # (A) 0.5 k/uL (0-1.0); Monocytes % (A) 6 %; Neutrophils # (A) 7.1 k/uL (1.3-7.7); Neutrophils % (A) 82 %; Platelet Count 433 k/uL (150-450); RBC 3.35 m/uL (4.30-5.90); RDW 14.1 % (11.5-15.5); WBC 8.7 k/uL (3.8-10.6)
[2017-11-07 06:55] LABS: ALT 36 U/L (21-72); AST 27 U/L (17-59); Alkaline Phosphatase 112 U/L (38-126); Anion Gap 11 mmol/L; Blood Urea Nitrogen 22 mg/dL (9-20); Calcium 8.4 mg/dL (8.4-10.2); Carbon Dioxide 23 mmol/L (22-30); Chloride 99 mmol/L (98-107); Glucose 86 mg/dL (74-99); Potassium 4.4 mmol/L (3.5-5.1); Sodium 133 mmol/L (137-145); Total Protein 5.8 g/dL (6.3-8.2)
[2017-11-07] MEDS: cefTRIAXone IN SWFI 1,000 MG/10 ML SYRINGE IVP STA ×2 (08:12→08:18)
[2017-11-07] MEDS: AZITHROMYCIN 500 MG in SODIUM CHLORIDE 0.9% 250 ML IVPB STA ×2 (08:12→08:18)
[2017-11-07] MEDS: SODIUM CHLORIDE 0.9% 1,000 ML IV SCH ×2 (08:17→16:54)
[2017-11-07] MEDS ORDERED: ALBUTEROL INHALER 60 PUFF/8 GM INHALER INHALATION PRN (10:34)
[2017-11-07] MEDS ORDERED: NITROGLYCERIN SL TABS 0.4 MG TAB SUBLINGUAL PRN (10:35)
[2017-11-07] MEDS: TAMSULOSIN 0.4 MG CAP.ER.24H PO SCH (11:01)
[2017-11-07] MEDS: EDOXABAN TOSYLATE 30 MG TABLET PO SCH (11:01)
[2017-11-07] MEDS: ATORVASTATIN 80 MG TAB PO SCH (11:01)
[2017-11-07] MEDS: DIGOXIN 125 MCG TAB PO SCH (11:01)
[2017-11-07] MEDS: CYANOCOBALAMIN 500 MCG TAB PO SCH (11:01)
[2017-11-07] MEDS: METOPROLOL TARTRATE 50 MG TAB PO SCH ×2 (11:01→21:18)
[2017-11-07] MEDS: IPRATROPIUM-ALBUTEROL 3 ML NEB INHALATION SCH ×5 (11:03→20:34)
[2017-11-07] MEDS: DILTIAZEM CD 180 MG CAP.ER.24H PO SCH (16:54)
--- NOTE | 2017-11-07 18:07 | HP ---
HISTORY AND PHYSICAL DATE OF ADMISSION: 11/07/2017 CHIEF COMPLAINT: Cough and shortness of breath. BRIEF HISTORY: Patient is a 72-year-old male with a history of coronary artery disease, CHF, history of hypertension and hyperlipidemia. He presented to ED with a complaint of a cough which started a few days ago. The patient claims that he did have some rattling in the chest at that point, but over a few days it has gotten progressively worse and now he has productive sputum which is thick and sandeep in color. Patient claims that he recently completed antibiotic treatment for UTI and has no urinary complaints, but he does feel short of breath without any chest pain. PAST MEDICAL HISTORY: 1. History of coronary artery disease. 2. History of CHF. 3. Gastroesophageal reflux disease. 4. Osteoarthritis. 5. Chronic kidney disease. 6. Hyperlipidemia. PAST SURGICAL HISTORY: 1. Bilateral hand surgery for nerve damage. 2. Colonoscopy. 3. Right knee arthroscopic surgery. SOCIAL HISTORY: Patient quit smoking a long time ago. FAMILY HISTORY: Significant for leukemia in mother. ALLERGIES: NO KNOWN DRUG ALLERGIES. CURRENT MEDICATIONS: 1. Vitamin B12 500 mcg p.o. daily. 2. Digoxin 125 mcg p.o. daily. 3. Ventolin inhaler 2 puffs q.6 hours p.r.n. 4. Cardizem 180 mg p.o. daily. 5. Lipitor 80 mg daily. 6. Savaysa 30 mg daily. 7. Lopressor 100 mg b.i.d. 8. Flomax 0.4 mg daily. 9. Tylenol 650 mg q.6 hours p.r.n. 10.Levaquin 500 mg daily, which he has already completed. REVIEW OF SYSTEMS: CONSTITUTIONAL: Patient denies any unexplained weight loss. No fever. No chills. HEENT: Denies hearing or vision loss. RESPIRATORY: Patient's shortness of breath as described above. CARDIOVASCULAR: Denies any chest pain or palpitations. ABDOMEN/GI: Denies any vomiting or diarrhea. GENITOURINARY: Recently completed treatment for a UTI. NEUROLOGICAL: No dizziness, lightheadedness. No headaches. MUSCULOSKELETAL: No joint or muscle deformities. SKIN: No pigmentation or rashes. LYMPHATICS: Denies lymph node enlargement. HEMATOLOGY: No anemia. No bleeding or coagulation disorder. Rest of 14-point review of systems is unremarkable. PHYSICAL EXAMINATION: GENERAL: Patient is awake, alert, oriented x3. He is in mild respiratory distress. VITAL SIGNS: Temperature of 97.6, pulse 95, respiration 16, blood pressure 124/70, oxygen saturation 95%. HEENT: Atraumatic, normocephalic. Pupils equal and reactive to light. Extraocular movements intact. Buccal mucosa is moist. NECK: Supple. No goiter or lymphadenopathy. JVD is negative. No carotid bruit heard. RESPIRATORY EXAMINATION: Patient has diffuse bilateral wheezes and rales in both lower lung burgos. CARDIOVASCULAR EXAMINATION: Heart has regular rate and rhythm without any murmurs, gallop rhythm. ABDOMEN/GI EXAMINATION: Abdomen is soft, nontender, nondistended. Bowel sounds positive. No guarding or rigidity. EXTREMITIES: Trace edema. No cyanosis or pigmentation. NEUROLOGICAL: Patient is awake, alert, oriented x3. No gross motor or sensory deficits. Cranial nerves 2-12 grossly intact. PSYCHIATRIC EXAMINATION: Patient has normal affect and mood, normal judgment. SKIN: No pigmentation. No rashes. LABS/X-RAY: Influenza A and B are negative. Chest x-ray shows peribronchial infiltrate on the right, consistent with pneumonia. CBC with white blood count of 8.7, hemoglobin 9.4, hematocrit 30.3 and platelet count of 433. Chemical profile shows sodium 133, potassium 4.4, chloride 99, bicarb 23, BUN 22, creatinine 1.1. ASSESSMENT: 1. Right-sided pneumonia, community-acquired. 2. Mild renal injury. 3. History of hypertension. 4. Coronary artery disease. 5. Asthma/chronic obstructive pulmonary disease. 6. Hypertension. 7. Hyperlipidemia. PLAN: Start patient on IV Rocephin and Zithromax per diagnosis of community-acquired pneumonia. Will order blood cultures, sputum cultures. Influenza testing has been negative so far. Continue with nebulizer treatments. Monitor CBC and electrolytes. Slow IV fluid hydration. Avoid nephrotoxins and resume all home medications. MMODL / IJN: [id number] /
[2017-11-08] MEDS: SODIUM CHLORIDE 0.9% 1,000 ML IV SCH ×3 (02:18→21:56)
[2017-11-08] MEDS: IPRATROPIUM-ALBUTEROL 3 ML NEB INHALATION SCH ×4 (08:18→19:52)
[2017-11-08] MEDS: DIGOXIN 125 MCG TAB PO SCH (08:51)
[2017-11-08] MEDS: TAMSULOSIN 0.4 MG CAP.ER.24H PO SCH (08:51)
[2017-11-08] MEDS: METOPROLOL TARTRATE 50 MG TAB PO SCH ×2 (08:51→21:33)
[2017-11-08] MEDS: EDOXABAN TOSYLATE 30 MG TABLET PO SCH (08:51)
[2017-11-08] MEDS: AZITHROMYCIN 500 MG TAB PO SCH (08:51)
[2017-11-08] MEDS: PANTOPRAZOLE 40 MG TABLET PO SCH (08:51)
[2017-11-08] MEDS: cefTRIAXone IN SWFI 1,000 MG/10 ML SYRINGE IVP SCH (08:51)
[2017-11-08] MEDS: ATORVASTATIN 80 MG TAB PO SCH (08:52)
--- NOTE | 2017-11-08 10:42 | XR ---
EXAMINATION TYPE: XR chest 2V DATE OF EXAM: 11/08/2017 HISTORY: pneumonia. REFERENCE: Previous study dated 11/07/2017. FINDINGS: The lungs are overinflated. The heart is mildly enlarged. There continues to be interstitia l change but this has improved. Pulmonary vasculature has returned to normal. IMPRESSION: 1. COPD. 2. IMPROVING CHANGES OF CONGESTIVE HEART FAILURE.
[2017-11-08] MEDS: CYANOCOBALAMIN 500 MCG TAB PO SCH (14:26)
[2017-11-08] MEDS: DILTIAZEM CD 180 MG CAP.ER.24H PO SCH (15:46)
--- NOTE | 2017-11-09 06:13 | PN ---
PROGRESS NOTE DATE OF SERVICE: 11/08/17 The patient resting in bed. Family at bedside. Claims the breathing is better than yesterday. Vital signs are temperature 97.8, pulse 100. Pulse 72, respirations 16, blood pressure 135/78, O2 saturation 97% on 3L. HEENT: Atraumatic, normocephalic. Pupils equal and reactive to light. Extraocular movements intact. Neck is supple. No goiter or lymphadenopathy. JVD is negative. No carotid bruit heard. Lungs are continue scattered rhonchi and wheezing. Heart is regular rate and rhythm without any murmurs, gallop rhythm. Abdomen: Soft, nontender, bowel sounds positive. Extremities: No clubbing, cyanosis. Neurological exam: Cranial nerves 2-12 grossly intact. No gross motor or sensory deficit. LAB: CBC, white blood count of 8.7, hemoglobin 9.4, hematocrit 30.3, and platelet count of 438. Chemical profile sodium 138, potassium 4.0, chloride 99, bicarb 23, BUN and creatinine 1.11. ASSESSMENT: 1. Community-acquired pneumonia, right-sided. 2. Hypertension. 3. Coronary artery disease. 4. Hypertension. 5. Hyperlipidemia. The patient remains on IV Rocephin and Zithromax. Blood cultures and sputum cultures have been negative. Influenza testing is negative. Patient is continued on nebulizer treatment. Symptomatic treatment for the pneumonia. monitor electrolytes. Continue with IV fluids. Continue to avoid nephrotoxins. PLAN: Switch the patient to go to oral antibiotics probably over next 24 hours and discharge when clinically stable. MMODL / IJN: [id number] / COLEEN
[2017-11-09 07:17] LABS: Basophils # (A) 0.1 k/uL (0-0.2); Basophils % (A) 1 %; Eosinophils # (A) 0.2 k/uL (0-0.7); Eosinophils % (A) 2 %; HCT 29.2 % (39.0-53.0); HGB 8.6 gm/dL (13.0-17.5); Hypochromasia Marked; Lymphocytes # (A) 0.9 k/uL (1.0-4.8); Lymphocytes % (A) 8 %; MCH 27.4 pg (25.0-35.0); MCHC 29.4 g/dL (31.0-37.0); MCV 93.4 fL (80.0-100.0); Monocytes # (A) 0.6 k/uL (0-1.0); Monocytes % (A) 6 %; Neutrophils # (A) 8.4 k/uL (1.3-7.7); Neutrophils % (A) 82 %; Platelet Count 401 k/uL (150-450); RBC 3.13 m/uL (4.30-5.90); WBC 10.4 k/uL (3.8-10.6)
[2017-11-09 07:32] LABS: Anion Gap 10 mmol/L; Blood Urea Nitrogen 15 mg/dL (9-20); Calcium 8.2 mg/dL (8.4-10.2); Carbon Dioxide 22 mmol/L (22-30); Chloride 103 mmol/L (98-107); Glucose 90 mg/dL (74-99); Potassium 4.6 mmol/L (3.5-5.1); Sodium 135 mmol/L (137-145)
[2017-11-09] MEDS: SODIUM CHLORIDE 0.9% 1,000 ML IV SCH (08:08)
[2017-11-09] MEDS: ATORVASTATIN 80 MG TAB PO SCH (08:20)
[2017-11-09] MEDS: TAMSULOSIN 0.4 MG CAP.ER.24H PO SCH (08:20)
[2017-11-09] MEDS: AZITHROMYCIN 500 MG TAB PO SCH (08:20)
[2017-11-09] MEDS: PANTOPRAZOLE 40 MG TABLET PO SCH (08:20)
[2017-11-09] MEDS: EDOXABAN TOSYLATE 30 MG TABLET PO SCH (08:21)
[2017-11-09] MEDS: METOPROLOL TARTRATE 50 MG TAB PO SCH ×2 (08:21→22:33)
[2017-11-09] MEDS: DIGOXIN 125 MCG TAB PO SCH (08:21)
[2017-11-09] MEDS ORDERED: SODIUM CHLORIDE 0.9% 500 ML IV SCH (08:45)
[2017-11-09] MEDS: cefTRIAXone IN SWFI 1,000 MG/10 ML SYRINGE IVP SCH (08:50)
[2017-11-09] MEDS: IPRATROPIUM-ALBUTEROL 3 ML NEB INHALATION SCH ×4 (08:57→20:32)
[2017-11-09] MEDS: CYANOCOBALAMIN 500 MCG TAB PO SCH (11:28)
[2017-11-09] MEDS: ACETAMINOPHEN TAB 325 MG TAB PO PRN ×2 (11:35→19:34)
[2017-11-09] MEDS: DILTIAZEM CD 180 MG CAP.ER.24H PO SCH (15:16)
--- NOTE | 2017-11-09 23:07 | PN ---
PROGRESS NOTE DATE OF SERVICE: 11/09/2017. HISTORY: The patient is seen in the room at bedside. The patient's family is at the bedside and feels that his breathing is slightly better but still having excessive bouts of coughing. VITAL SIGNS: Temperature of 98.9, pulse 100, respirations 14, blood pressure 135/71, O2 saturation 96%. HEENT: Atraumatic, normocephalic. Pupils equal and reactive to light. Extraocular movements intact. Buccal mucosa are pink. NECK: Supple. No goiter, lymphadenopathy. JVD is negative. LUNGS: Scattered rhonchi with occasional wheezing. HEART: Regular rhythm. No gallop rhythm. ABDOMEN: Soft, nontender, nondistended. Bowel sounds positive. EXTREMITIES: No edema, clubbing, or cyanosis. LABS: CBC, white blood count of 10.9, hemoglobin 8.6, hematocrit 29.2, and platelet count of 401. Sodium 135, potassium 4.6, chloride 108, bicarb 22, BUN 15, creatinine 0.9. ASSESSMENT: 1. Community-acquired pneumonia. 2. Hypertension. 3. Coronary artery disease. 4. Hypertension. 5. Hyperlipidemia. Continue with IV Rocephin and Zithromax. PLAN: Increase activity. Blood cultures have been unremarkable. The patient's influenza screen is negative. Continue nebulizer treatment. Symptomatic treatment for pneumonia. I will continue with the current medications. Switch to oral antibiotics tomorrow. Possible discharge home tomorrow. MMODL / IJN: [id number] /
[2017-11-10] MEDS: DIGOXIN 125 MCG TAB PO SCH (07:37)
[2017-11-10] MEDS: METOPROLOL TARTRATE 50 MG TAB PO SCH ×2 (07:37→19:59)
[2017-11-10] MEDS: AZITHROMYCIN 500 MG TAB PO SCH (07:38)
[2017-11-10] MEDS: PANTOPRAZOLE 40 MG TABLET PO SCH (07:38)
[2017-11-10] MEDS: TAMSULOSIN 0.4 MG CAP.ER.24H PO SCH ×2 (07:38→08:55)
[2017-11-10] MEDS: ATORVASTATIN 80 MG TAB PO SCH (07:38)
[2017-11-10] MEDS: EDOXABAN TOSYLATE 30 MG TABLET PO SCH (07:39)
[2017-11-10] MEDS: cefTRIAXone IN SWFI 1,000 MG/10 ML SYRINGE IVP SCH (08:55)
[2017-11-10] MEDS: IPRATROPIUM-ALBUTEROL 3 ML NEB INHALATION SCH ×4 (09:16→21:55)
[2017-11-10] MEDS: CYANOCOBALAMIN 500 MCG TAB PO SCH (13:54)
[2017-11-10] MEDS: DILTIAZEM CD 180 MG CAP.ER.24H PO SCH (15:16)
--- NOTE | 2017-11-10 21:52 | PN ---
PROGRESS NOTE DATE OF SERVICE: 11/10/2017 The patient up in bed. Family at bedside. According to the patient's daughter, the patient tried to get up from the bed and was extremely weak and was not able to go to the bathroom without help and support. His oxygen level also dropped down to 88 once oxygen per nasal cannula was removed. The patient's vital signs at this point, temperature 97.5, pulse 103, respiratory rate 18, blood pressure 131/82, O2 saturation 93% on 3 L. HEENT: Atraumatic, normocephalic. Pupils equal and reactive to light. Extraocular movements intact. Buccal mucosa moist. Neck is supple. No goiter, lymphadenopathy, JVD is negative. No carotid bruit heard. Lungs scattered rhonchi with decreased breath sounds. Heart is regular rate and rhythm without any murmur or gallop rhythm. Abdomen is soft and nontender nondistended. Bowel sounds are positive. Extremities 1+ edema bilateral lower extremities. Neurological exam: Cranial nerves 2 thru 12 gross intact. No gross motor or sensory deficits. LABORATORY DATA: CBC white blood count of 7.4, hemoglobin 8.6, hematocrit 29.2, and platelet count of 401. Chemical profile sodium 131, chloride 103, bicarb 22, BUN 15, creatinine 0.9. ASSESSMENT: 1. Community-acquired pneumonia which is clinically improving. Plan was to discharge the patient home with home care. The patient is extremely weak and debilitated. Plan now is to hold the discharge and consult PT/OT and possible discharge to care home facility. The patient's daughter at the bedside and is agreeable with the plan. 2. Hypertension. 3. Coronary artery disease. 4. Hyperlipidemia. Patient remains on IV antibiotics and will be switched to oral once ready for discharge. The patient's has been negative. The patient is on nebulizer treatments. Plan is to switch the patient to oral antibiotics and possible discharge once arrangements are made for skilled rehab. MMODL / IJN: [id number] /
[2017-11-11] MEDS: IPRATROPIUM-ALBUTEROL 3 ML NEB INHALATION SCH ×4 (07:58→19:42)
[2017-11-11] MEDS: AZITHROMYCIN 500 MG TAB PO SCH (09:22)
[2017-11-11] MEDS: DIGOXIN 125 MCG TAB PO SCH (09:22)
[2017-11-11] MEDS: EDOXABAN TOSYLATE 30 MG TABLET PO SCH (09:22)
[2017-11-11] MEDS: cefTRIAXone IN SWFI 1,000 MG/10 ML SYRINGE IVP SCH (09:22)
[2017-11-11] MEDS: PANTOPRAZOLE 40 MG TABLET PO SCH (09:22)
[2017-11-11] MEDS: METOPROLOL TARTRATE 50 MG TAB PO SCH ×2 (09:23→20:05)
[2017-11-11] MEDS: ATORVASTATIN 80 MG TAB PO SCH (09:23)
[2017-11-11] MEDS: TAMSULOSIN 0.4 MG CAP.ER.24H PO SCH (09:23)
[2017-11-11] MEDS: CYANOCOBALAMIN 500 MCG TAB PO SCH (12:07)
[2017-11-11] MEDS: DILTIAZEM CD 180 MG CAP.ER.24H PO SCH (16:23)
--- NOTE | 2017-11-11 19:57 | PN ---
PROGRESS NOTE DATE OF SERVICE: 11/11/2017. INTERVAL HISTORY: This 72-year-old gentleman admitted with community acquired pneumonia also had severe significant debility. PT/OT is evaluating the patient closely. The patient had gait dysfunction, possibly ECF rehab is being considered at this time. PAST MEDICAL HISTORY: Reviewed. REVIEW OF SYSTEMS: Cardiovascular system: No angina or palpitations. Respiratory: As mentioned earlier. GI: No nausea or vomiting. : No dysuria or hematuria. Nervous system: No numbness, weakness. CURRENT MEDICATIONS ARE: 1. Tylenol 650 q.6h p.r.n. 2. DuoNeb q.i.d. and p.r.n. 3. Lipitor 80 mg daily. 4. Zithromax 500 mg. 5. Vitamin B12 500 mg daily. 6. Lanoxin 120 mcg. 7. Cardizem 180 mg daily. 8. Savaysa 30 mg daily. 9. Lopressor 100 mg p.o. b.i.d. 10.Nitrostat. 11.Protonix. 12.Flomax. PHYSICAL EXAM: Patient is alert, oriented times three, pulse is 98, blood pressure 119/70, respiration 18, temperature 98.4, pulse ox 98% on 3 L. HEENT conjunctivae normal. Oral mucosa moist. Neck is no jugular venous distention. No carotid bruit. No lymph node enlargement. Cardiovascular S1-S2. No S3, no S4. Respiratory: breath sounds diminished in the bases. A few scattered rhonchi and crackles. Expiratory wheezing also present. ABDOMEN: Soft, nontender. No mass palpable. Legs no edema and no swelling. NERVOUS SYSTEM: Higher functions as mentioned earlier, moves all 4 limbs, no focal deficits. Lymphatics: No lymph nodes palpable in the neck, axillae or groin. Skin no ulcer, rash or bleeding. LAB STUDIES: WBC 11.1, hemoglobin is 8.6, sodium 135. ASSESSMENT: 1. Acute community acquired pneumonia. 2. Hypertension. 3. Gait dysfunction. 4. Coronary artery disease. 5. Hyperlipidemia. 6. Hyponatremia. 7. Anemia normocytic anemia of chronic disease. 8. History of degenerative joint disease. 9. History of congestive heart failure. 10.History of coronary artery disease. RECOMMENDATIONS AND DISCUSSION: In this 72-year-old gentleman who presented with multiple complex medical issues, we will monitor the patient closely. Continue the current medications, management and symptomatic treatment. Continue the bronchodilators. Continue the antibiotics. Continue the home medications. PT, OT evaluation. Otherwise possible ECF rehab. Guarded prognosis because of multiple complex medical issues and further recommendations for DVT prophylaxis. MMODL / IJN: [id number] /
[2017-11-12] MEDS: IPRATROPIUM-ALBUTEROL 3 ML NEB INHALATION SCH ×4 (07:36→19:19)
[2017-11-12] MEDS: METOPROLOL TARTRATE 50 MG TAB PO SCH ×2 (09:12→21:07)
[2017-11-12] MEDS: ATORVASTATIN 80 MG TAB PO SCH (09:12)
[2017-11-12] MEDS: EDOXABAN TOSYLATE 30 MG TABLET PO SCH (09:12)
[2017-11-12] MEDS: DIGOXIN 125 MCG TAB PO SCH (09:12)
[2017-11-12] MEDS: TAMSULOSIN 0.4 MG CAP.ER.24H PO SCH (09:12)
[2017-11-12] MEDS: PANTOPRAZOLE 40 MG TABLET PO SCH (09:12)
[2017-11-12] MEDS: AZITHROMYCIN 500 MG TAB PO SCH (09:12)
--- NOTE | 2017-11-12 10:44 | P.DS ---
Providers Date of admission: 11/07/17 06:13 Expected date of discharge: 11/12/17 Attending physician: Akash Muñoz Primary care physician: Akash Muñoz [facility] Course: 72-year-old male who presented to the emergency room on 11/07/2017 with a chief complaint of coughing and "rattling in my chest". Positive sputum production. Patient complained of mild shortness of breath. Chest x-ray obtained on admission revealed mild interstitial prominence with peribronchial infiltrates in the upper and lower lobes, suspicious for early pneumonia. Testing for influenza A and B was negative. The patient was admitted to hospital. He was placed on antibiotics and nebulizer treatments. He received gentle IV hydration. Blood cultures have been negative at 120 hour keisha. The patient does have a indwelling urinary catheter secondary to urinary retention. Patient states he is to follow up with urologist at the end of the month for possible removal of catheter and voiding trial. Physical therapy and occupational therapy were consulted to evaluate patient during hospitalization. Recommendations included subacute rehab. Patient agreeable to [facility] at the time of discharge. The patient was placed on Augmentin at the time of discharge per Dr. Veloz, who was covering for Dr. Muñoz. The patient was deemed stable for discharge to [facility] per Dr. Muñoz pending insurance authorization. DISCHARGE DIAGNOSIS: Community-acquired pneumonia, right upper and lower lobes, sputum culture reveals normal respiratory adria Essential hypertension Coronary artery disease Gait dysfunction and debility Hyperlipidemia Urinary retention, requiring indwelling urinary catheter Anemia of chronic disease, stable Degenerative joint disease History of congestive heart failure, type unknown, no evidence of acute exacerbation Nurse practitioner note has been reviewed by physician. Signing provider agrees with the documented findings, assessment, and plan of care. Plan - Discharge Summary Discharge Rx Participant: No New Discharge Prescriptions: New Amoxicillin/Potassium Clav [Augmentin 875-125 Tablet] 1 tab PO Q12HR #14 tab Pantoprazole [Protonix] 40 mg PO AC-BRKFST #30 tablet.dr Clemente Cyanocobalamin [Vitamin B-12] 500 mcg PO DAILY Atorvastatin [Lipitor] 80 mg PO DAILY #90 tab Nitroglycerin Sl Tabs [Nitrostat] 0.4 mg SUBLINGUAL Q5M PRN #30 tab PRN Reason: Chest Pain Digoxin [Lanoxin] 125 mcg PO DAILY Albuterol Inhaler [Ventolin Hfa Inhaler] 1 - 2 puff INHALATION RT-Q6H PRN PRN Reason: Shortness Of Breath Diltiazem HCl [Diltiazem 24Hr ER] 180 mg PO DAILY@1600 Edoxaban Tosylate [Savaysa] 30 mg PO DAILY #30 tablet Tamsulosin [Flomax] 0.4 mg PO PC-BRKFST #30 cap Metoprolol Tartrate [Lopressor] 100 mg PO BID #120 tab Acetaminophen Tab [Tylenol] 650 mg PO Q6HR PRN tab PRN Reason: Mild Pain Discontinued Levofloxacin [Levaquin] 500 mg PO Q24H #7 tab Discharge Medication List Cyanocobalamin [Vitamin B-12] 500 mcg PO DAILY 06/30/15 [History] Atorvastatin [Lipitor] 80 mg PO DAILY #90 tab 07/04/15 [Rx] Nitroglycerin Sl Tabs [Nitrostat] 0.4 mg SUBLINGUAL Q5M PRN #30 tab 07/04/15 [Rx ] Digoxin [Lanoxin] 125 mcg PO DAILY 08/14/15 [History] Albuterol Inhaler [Ventolin Hfa Inhaler] 1 - 2 puff INHALATION RT-Q6H PRN [History] Diltiazem HCl [Diltiazem 24Hr ER] 180 mg PO DAILY@1600 11/02/16 [History] Edoxaban Tosylate [Savaysa] 30 mg PO DAILY #30 tablet 10/09/17 [Rx] Metoprolol Tartrate [Lopressor] 100 mg PO BID #120 tab 10/09/17 [Rx] Tamsulosin [Flomax] 0.4 mg PO PC-BRKFST #30 cap 10/09/17 [Rx] Acetaminophen Tab [Tylenol] 650 mg PO Q6HR PRN tab 10/29/17 [Rx] Amoxicillin/Potassium Clav [Augmentin 875-125 Tablet] 1 tab PO Q12HR #14 tab [Rx] Pantoprazole [Protonix] 40 mg PO AC-BRKFST #30 tablet. 11/10/17 [Rx] Follow up Appointment(s)/Referral(s): Akash Muñoz DO [Primary Care Provider] - 11/14/17 2:00 pm (please call and cancel appointment phone is currently down) Activity/Diet/Wound Care/Special Instructions: Heart healthy diet Activity as tolerated Nasal cannula as needed to maintain oxygen saturations greater than 92% Patient states he has an appointment scheduled at the end of October with urologist regarding possible removal of urinary catheter and voiding trial Discharge Disposition: TRANSFER TO SNF/ECF
[2017-11-12] MEDS: CYANOCOBALAMIN 500 MCG TAB PO SCH (12:11)
[2017-11-12] MEDS: ACETAMINOPHEN TAB 325 MG TAB PO PRN ×2 (12:56→21:07)
[2017-11-12] MEDS: DILTIAZEM CD 180 MG CAP.ER.24H PO SCH (15:22)
[2017-11-13] MEDS: PANTOPRAZOLE 40 MG TABLET PO SCH (09:20)
[2017-11-13] MEDS: TAMSULOSIN 0.4 MG CAP.ER.24H PO SCH (09:20)
[2017-11-13] MEDS: ATORVASTATIN 80 MG TAB PO SCH (09:21)
[2017-11-13] MEDS: AZITHROMYCIN 500 MG TAB PO SCH (09:21)
[2017-11-13] MEDS: EDOXABAN TOSYLATE 30 MG TABLET PO SCH (09:21)
[2017-11-13] MEDS: METOPROLOL TARTRATE 50 MG TAB PO SCH ×2 (09:22→20:59)
[2017-11-13] MEDS: DIGOXIN 125 MCG TAB PO SCH (09:25)
[2017-11-13] MEDS: IPRATROPIUM-ALBUTEROL 3 ML NEB INHALATION SCH ×4 (09:35→19:14)
[2017-11-13] MEDS: CYANOCOBALAMIN 500 MCG TAB PO SCH (11:52)
[2017-11-13] MEDS: DILTIAZEM CD 180 MG CAP.ER.24H PO SCH (18:22)
[2017-11-14] MEDS: IPRATROPIUM-ALBUTEROL 3 ML NEB INHALATION SCH ×4 (08:50→20:09)
[2017-11-14] MEDS: ATORVASTATIN 80 MG TAB PO SCH (09:02)
[2017-11-14] MEDS: PANTOPRAZOLE 40 MG TABLET PO SCH (09:02)
[2017-11-14] MEDS: EDOXABAN TOSYLATE 30 MG TABLET PO SCH (09:02)
[2017-11-14] MEDS: METOPROLOL TARTRATE 50 MG TAB PO SCH ×2 (09:02→21:51)
[2017-11-14] MEDS: TAMSULOSIN 0.4 MG CAP.ER.24H PO SCH (09:02)
[2017-11-14] MEDS: AZITHROMYCIN 500 MG TAB PO SCH (09:02)
[2017-11-14] MEDS: DIGOXIN 125 MCG TAB PO SCH (09:03)
[2017-11-14] MEDS: CYANOCOBALAMIN 500 MCG TAB PO SCH (12:16)
[2017-11-14] MEDS: DILTIAZEM CD 180 MG CAP.ER.24H PO SCH (15:14)
[2017-11-14] MEDS: ACETAMINOPHEN TAB 325 MG TAB PO PRN (15:14)
[2017-11-15] MEDS: IPRATROPIUM-ALBUTEROL 3 ML NEB INHALATION SCH ×4 (08:09→21:25)
[2017-11-15] MEDS: PANTOPRAZOLE 40 MG TABLET PO SCH (08:55)
[2017-11-15] MEDS: TAMSULOSIN 0.4 MG CAP.ER.24H PO SCH (08:55)
[2017-11-15] MEDS: AZITHROMYCIN 500 MG TAB PO SCH (08:55)
[2017-11-15] MEDS: DIGOXIN 125 MCG TAB PO SCH (08:55)
[2017-11-15] MEDS: METOPROLOL TARTRATE 50 MG TAB PO SCH ×2 (08:55→20:46)
[2017-11-15] MEDS: ATORVASTATIN 80 MG TAB PO SCH (08:55)
[2017-11-15] MEDS: EDOXABAN TOSYLATE 30 MG TABLET PO SCH (08:56)
[2017-11-15 10:10] VITALS: BMI 29.9
[2017-11-15] MEDS: CYANOCOBALAMIN 500 MCG TAB PO SCH (12:42)
[2017-11-15] MEDS: DILTIAZEM CD 180 MG CAP.ER.24H PO SCH (16:45)
--- NOTE | 2017-11-15 18:16 | PN ---
PROGRESS NOTE DATE OF SERVICE: 11/15/2017 I am covering for Dr. Dr. Muñoz. HISTORY OF PRESENT ILLNESS: This 72-year-old gentleman who was admitted with pneumonia and multiple other medical problems has been closely monitored at this time. The ECF rehab is being planned but however the Social Work Case Management is resolving the insurance issues and preauthorization. No chest pain. No palpitations. No fever. EXAM: Alert and oriented x3. Pulse 79, blood pressure 120/77, respirations 22, temperature 98.2, pulse ox 98% on room air. HEENT: Conjunctivae normal. NECK: No jugular venous distention. CARDIOVASCULAR: S1, S2. RESPIRATORY: Breath sounds diminished in the bases. A few scattered rhonchi. ABDOMEN: Soft, nontender. LEGS: No edema. NERVOUS SYSTEM: No focal deficits. LAB STUDIES: WBC 10.6. ASSESSMENT: 1. Acute community-acquired pneumonia on the right side. 2. Hypertension. 3. Gait dysfunction. 4. History of coronary artery disease. 5. Hyperlipidemia. 6. Hyponatremia. 7. Anemia normocytic anemia of chronic disease. 8. History of degenerative joint disease. 9. History of congestive heart failure. 10.History of coronary artery disease. RECOMMENDATIONS AND DISCUSSION: I recommend to continue current management and symptomatic treatment. Otherwise closely monitor. Continue with antibiotics. Continue with bronchodilators and the rest of the medications. PT/OT evaluation and possible ECF rehab. Further recommendations to follow. Patient is Vinod. MMODL / IJN: [id number] /
[2017-11-16] MEDS: IPRATROPIUM-ALBUTEROL 3 ML NEB INHALATION SCH ×4 (07:29→20:26)
[2017-11-16] MEDS: EDOXABAN TOSYLATE 30 MG TABLET PO SCH (07:58)
[2017-11-16] MEDS: TAMSULOSIN 0.4 MG CAP.ER.24H PO SCH (07:58)
[2017-11-16] MEDS: ATORVASTATIN 80 MG TAB PO SCH (07:59)
[2017-11-16] MEDS: PANTOPRAZOLE 40 MG TABLET PO SCH (07:59)
[2017-11-16] MEDS: AZITHROMYCIN 500 MG TAB PO SCH (07:59)
[2017-11-16] MEDS: DIGOXIN 125 MCG TAB PO SCH (07:59)
[2017-11-16] MEDS: METOPROLOL TARTRATE 50 MG TAB PO SCH ×2 (07:59→19:57)
[2017-11-16] MEDS: CYANOCOBALAMIN 500 MCG TAB PO SCH (08:00)
[2017-11-16] MEDS: DILTIAZEM CD 180 MG CAP.ER.24H PO SCH (15:06)
[2017-11-16] MEDS: ACETAMINOPHEN TAB 325 MG TAB PO PRN (15:06)
--- NOTE | 2017-11-16 17:18 | PN ---
PROGRESS NOTE DATE OF SERVICE: 11/16/2017 I am covering for Dr. Muñoz. HISTORY OF PRESENT ILLNESS: This 72-year-old gentleman was admitted with community acquired pneumonia on the right side is awaiting ECF transfer. No chest pain. No palpitations. No fever. Occasional cough is reported. PHYSICAL EXAM: Alert and oriented x3. Pulse 89, blood pressure 145/61, respiration 20, temperature 98.2, pulse ox 95% on room air. HEENT: Conjunctivae normal. Oral mucosa moist. NECK: No jugular venous distention. CARDIOVASCULAR: S1, S2. RESPIRATORY: Breath sounds diminished in the bases. A few scattered rhonchi and crackles. ABDOMEN: Soft, nontender. LEGS: No edema. NERVOUS SYSTEM: No focal deficits. LABS: Sodium 135, hemoglobin is 8.6. ASSESSMENT: 1. Acute community-acquired pneumonia on the right side. 2. Hypertension. 3. Gait dysfunction. 4. Anemia of chronic disease. 5. History of coronary artery disease. 6. Hyperlipidemia. 7. Hyponatremia. 8. History of degenerative joint disease. 9. History of congestive heart failure. 10.History of coronary artery disease. RECOMMENDATIONS AND DISCUSSION: I recommend to continue current management, continue symptomatic treatment. Continue the antibiotics, bronchodilators. PT, OT evaluation. Prognosis guarded. Further recommendations to follow. MMODL / IJN: [id number] /
[2017-11-16 22:41] VITALS: RESP 16
[2017-11-17] MEDS: IPRATROPIUM-ALBUTEROL 3 ML NEB INHALATION SCH ×2 (07:22→11:35)
[2017-11-17] MEDS: AZITHROMYCIN 500 MG TAB PO SCH (09:21)
[2017-11-17] MEDS: ATORVASTATIN 80 MG TAB PO SCH (09:21)
[2017-11-17] MEDS: TAMSULOSIN 0.4 MG CAP.ER.24H PO SCH (09:21)
[2017-11-17] MEDS: PANTOPRAZOLE 40 MG TABLET PO SCH (09:21)
[2017-11-17] MEDS: METOPROLOL TARTRATE 50 MG TAB PO SCH (09:21)
[2017-11-17] MEDS: DIGOXIN 125 MCG TAB PO SCH (09:22)
[2017-11-17] MEDS: EDOXABAN TOSYLATE 30 MG TABLET PO SCH (09:22)
[2017-11-17 09:35] VITALS: BP 147/68; TEMP 98.2
[2017-11-17 11:58] VITALS: PULSE 89
[2017-11-17] MEDS: CYANOCOBALAMIN 500 MCG TAB PO SCH (13:14)
== END 2017-11-17 13:08 | DRG 194 ==
LOC: EC 03:57 → 3SUR 06:13
PROVIDERS: ADMIT Family Medicine; ATTEND Family Medicine
DX: J18.9 Pneumonia, unspecified organism (principal); E87.1 Hypo-osmolality and hyponatremia; D63.8 Anemia in other chronic diseases classified elsewhere; I11.0 Hypertensive heart disease with heart failure; I50.9 Heart failure, unspecified; J44.0 Chronic obstructive pulmonary disease with (acute) lower respiratory infection; E78.5 Hyperlipidemia, unspecified; I25.10 Atherosclerotic heart disease of native coronary artery without angina pectoris; K21.9 Gastro-esophageal reflux disease without esophagitis; M19.90 Unspecified osteoarthritis, unspecified site; R26.9 Unspecified abnormalities of gait and mobility; R33.9 Retention of urine, unspecified; Z79.899 Other long term (current) drug therapy; Z87.891 Personal history of nicotine dependence
CPT/HCPCS: 71046; 80048; 80053; 83605; 85025; 87040; 87070; 87205; 87502; 94640; 94760; 99284

== ENCOUNTER → 2017-12-31 | Outpatient (CLI) | payer MEDICARE ==
[2017-12-31 10:32] LABS: Basophils % (A) 1 %; Eosinophils # (A) 0.2 k/uL (0-0.7); Eosinophils % (A) 3 %; HCT 34.5 % (39.0-53.0); HGB 10.3 gm/dL (13.0-17.5); Hypochromasia Marked; Lymphocytes # (A) 0.7 k/uL (1.0-4.8); Lymphocytes % (A) 8 %; MCH 26.6 pg (25.0-35.0); MCV 88.5 fL (80.0-100.0); Mean Platelet Volume 7.3; Monocytes # (A) 0.5 k/uL (0-1.0); Monocytes % (A) 6 %; Neutrophils % (A) 82 %; Platelet Count 411 k/uL (150-450); RBC 3.89 m/uL (4.30-5.90); RDW 15.9 % (11.5-15.5); WBC 8.4 k/uL (3.8-10.6)
[2017-12-31 10:47] LABS: Anion Gap 14 mmol/L; Blood Urea Nitrogen 14 mg/dL (9-20); Calcium 8.8 mg/dL (8.4-10.2); Carbon Dioxide 27 mmol/L (22-30); Chloride 99 mmol/L (98-107); Glucose 122 mg/dL (74-99); Potassium 3.9 mmol/L (3.5-5.1); Sodium 140 mmol/L (137-145)
[2017-12-31 10:59] LABS: Appearance,Urine Clear (Clear); Bilirubin,Urine Negative (Negative); Blood,Urine Negative (Negative); Color,Urine Colorless; Glucose,Urine (UA) Negative (Negative); Ketones,Urine Negative (Negative); Leukocyte Esterase,Urine Small (Negative); Mucus,Urine Rare /hpf; Nitrite,Urine Negative (Negative); Protein,Urine Negative (Negative); Specific Gravity,Urine 1.005 (1.001-1.035); Urobilinogen,Urine <2.0 mg/dL (<2.0); WBC,Urine 2 /hpf (0-5)
== END | disposition home or self-care (01) ==
LOC: LABPAT 09:56
PROVIDERS: ATTEND Urology
DX: Z01.812 Encounter for preprocedural laboratory examination (principal); N40.1 Benign prostatic hyperplasia with lower urinary tract symptoms; R31.21 Asymptomatic microscopic hematuria; R33.9 Retention of urine, unspecified
CPT/HCPCS: 36415; 80048; 81001; 85025; 87086

== ENCOUNTER 2018-01-07 08:46 | Day surgery (SDC) | payer MEDICARE ==
[2017-12-26 15:49] VITALS: BMI 31.8
[~2018-01-07 08:46] MED LIST: AMPICILLIN 1,000 MG in SODIUM CHLORIDE 0.9% 50 ML IVPB ONE; DEXAMETHASONE SOD PHOSPHATE 10 MG/ML 1 ML VIAL IV ONE; GENTAMICIN 150 MG in SODIUM CHLORIDE 0.9% 100 ML IVPB ONE; LACTATED RINGERS 1,000 ML IV SCH; LIDOCAINE 1% 20 ML VIAL (10MG/ML) FOR IV START INTRADERMA PRN; MORPHINE SULFATE 2 MG/ML SYRINGE IV PRN; ONDANSETRON 4 MG/2 ML VIAL IVP ONE
[2018-01-07] MEDS ORDERED: ROCURONIUM BROMIDE 10 MG/ML 10 ML VIAL IV ONE (10:27)
[2018-01-07] MEDS ORDERED: fentaNYL (PF) 50 MCG/ML 2 ML AMP ONE (10:27)
[2018-01-07] MEDS ORDERED: LIDOCAINE 1% INJ 10MG/ML (20 ML MDV) ONE (10:27)
[2018-01-07] MEDS ORDERED: GLYCOPYRROLATE 0.2 MG/ML 2 ML VIAL ONE (10:27)
[2018-01-07] MEDS ORDERED: NEOSTIGMINE 1 MG/ML 10 ML VIAL ONE (10:27)
[2018-01-07] MEDS ORDERED: SUCCINYLCHOLINE CHLORIDE 100 MG/5 ML SYR IV ONE (10:27)
[2018-01-07] MEDS ORDERED: MIDAZOLAM 2 MG/2 ML VIAL ONE (10:27)
[2018-01-07] MEDS ORDERED: PROPOFOL 10 MG/ML 20 ML VIAL IV ONE (10:27)
[2018-01-07] MEDS ORDERED: BELLADONNA-OPIUM 16.2-60 MG 1 EACH SUPP RECTAL PRN (11:44)
[2018-01-07] MEDS ORDERED: MAG HYDROX/AL HYDROX/SIMETH 30 ML CUP PO PRN (11:44)
[2018-01-07] MEDS ORDERED: ACETAMINOPHEN TAB 325 MG TAB PO PRN (11:44)
--- NOTE | 2018-01-07 11:49 | P.OP ---
Date of Procedure: 01/07/18 Preoperative Diagnosis: Urine retention secondary to BPH Postoperative Diagnosis: Same Procedure(s) Performed: Bipolar TURP Anesthesia: NAILA Surgeon: Eliceo Alaniz Estimated Blood Loss (ml): 50 Pathology: other (Prostate chips) Condition: stable Disposition: PACU Indications for Procedure: Patient is 72 in urine retention. CMG shows bladder recuperation. He comes for a TURP Description of Procedure: Patient is brought to the operating suite. Given successful general endotracheal anesthesia. He has a sterile prep and drape. Under direct vision the 25-Palauan resectoscope sheath and direct vision obturator and Foroblique lenses introduced in urethra. It is normal the prostate shows trilobar obstruction. The bladder wall shows heavy trabeculation. With the bipolar loop I resect the prostate beginning at 12:00 resect the left lateral lobe from bladder neck to verumontanum resecting the right lateral lobe from bladder neck to verumontanum and resecting the redundant floor tissue. The bladder free to prostatic chips with the Ellik evacuator. The prostate fossa bleeding was controlled electrocautery. Then of the procedure there is no active bleeding. A 20-Palauan 5 mL coud tip catheters introduced the bladder clear urine return. The patient's awake and returned recovery in good condition. He'll be observed in the hospital overnight for patient safety. Blood loss is approximately 50 mL
[2018-01-07 12:33] VITALS: RESP 16
[2018-01-07] MEDS: DEXTROSE 5%-0.45% NACL 1,000 ML IV SCH (14:42)
[2018-01-07] MEDS ORDERED: DILTIAZEM CD 180 MG CAP.ER.24H PO SCH (18:30)
[2018-01-07] MEDS: DOCUSATE 100 MG CAP PO SCH (20:40)
[2018-01-08 02:11] VITALS: BP 127/74; PULSE 92; TEMP 97.5
[2018-01-08] MEDS: DEXTROSE 5%-0.45% NACL 1,000 ML IV SCH ×2 (06:26→07:09)
--- NOTE | 2018-01-08 06:46 | P.DS ---
Providers Attending physician: Eliceo Alaniz Primary care physician: [facility] Course: Patient underwent a TURP 01/07/2018 for urine retention. He was kept in the hospital overnight for his safety. His urine has cleared nicely. He'll be discharged home in care of his family with his indwelling catheter. He'll return tomorrow for catheter removal. Diet is regular. His medications are the same and which she is admitted. Patient Condition at Discharge: Good Plan - Discharge Summary Discharge Rx Participant: No New Discharge Prescriptions: No Action Cyanocobalamin [Vitamin B-12] 500 mcg PO DAILY Atorvastatin [Lipitor] 80 mg PO DAILY #90 tab Nitroglycerin Sl Tabs [Nitrostat] 0.4 mg SUBLINGUAL Q5M PRN #30 tab PRN Reason: Chest Pain Digoxin [Lanoxin] 125 mcg PO DAILY Albuterol Inhaler [Ventolin Hfa Inhaler] 1 - 2 puff INHALATION RT-Q6H PRN PRN Reason: Shortness Of Breath Diltiazem HCl [Diltiazem 24Hr ER] 180 mg PO DAILY@1600 Tamsulosin [Flomax] 0.4 mg PO PC-BRKFST #30 cap Acetaminophen Tab [Tylenol] 650 mg PO Q6HR PRN tab PRN Reason: Mild Pain Pantoprazole [Protonix] 40 mg PO AC-BRKFST #30 tablet. Ipratropium Nebulized [Atrovent Nebulized] 0.5 mg INHALATION Q6HR PRN PRN Reason: Shortness Of Breath Furosemide [Lasix] 40 mg PO DAILY Potassium Chloride [Klor-Con 10] 10 meq PO DAILY Metoprolol Tartrate [Lopressor] 50 mg PO BID Rivaroxaban [Xarelto] 15 mg PO DAILY Methocarbamol [Robaxin] 500 mg PO TID PRN PRN Reason: muscle spasms Discharge Medication List Cyanocobalamin [Vitamin B-12] 500 mcg PO DAILY 06/30/15 [History] Atorvastatin [Lipitor] 80 mg PO DAILY #90 tab 07/04/15 [Rx] Nitroglycerin Sl Tabs [Nitrostat] 0.4 mg SUBLINGUAL Q5M PRN #30 tab 07/04/15 [Rx ] Digoxin [Lanoxin] 125 mcg PO DAILY 08/14/15 [History] Albuterol Inhaler [Ventolin Hfa Inhaler] 1 - 2 puff INHALATION RT-Q6H PRN [History] Diltiazem HCl [Diltiazem 24Hr ER] 180 mg PO DAILY@1600 11/02/16 [History] Tamsulosin [Flomax] 0.4 mg PO PC-BRKFST #30 cap 10/09/17 [Rx] Acetaminophen Tab [Tylenol] 650 mg PO Q6HR PRN tab 10/29/17 [Rx] Pantoprazole [Protonix] 40 mg PO AC-BRKFST #30 tablet.dr 11/10/17 [Rx] Furosemide [Lasix] 40 mg PO DAILY 12/26/17 [History] Ipratropium Nebulized [Atrovent Nebulized] 0.5 mg INHALATION Q6HR PRN 12/26/17 [ History] Methocarbamol [Robaxin] 500 mg PO TID PRN 12/26/17 [History] Metoprolol Tartrate [Lopressor] 50 mg PO BID 12/26/17 [History] Potassium Chloride [Klor-Con 10] 10 meq PO DAILY 12/26/17 [History] Rivaroxaban [Xarelto] 15 mg PO DAILY 12/26/17 [History] Follow up Appointment(s)/Referral(s): Eliceo Aalniz MD [STAFF PHYSICIAN] - 01/09/18 Patient Instructions/Handouts: Transurethral Prostatectomy (DC) Activity/Diet/Wound Care/Special Instructions: d/c home w [facility] tomorrow 01/09/18 for catheter removal Discharge Disposition: HOME SELF-CARE
[2018-01-08] MEDS: DOCUSATE 100 MG CAP PO SCH (07:09)
[2018-01-08] MEDS ORDERED: FUROSEMIDE 40 MG TAB PO SCH (09:00)
[2018-01-08] MEDS ORDERED: CYANOCOBALAMIN 500 MCG TAB PO SCH (09:00)
[2018-01-08] MEDS ORDERED: DIGOXIN 125 MCG TAB PO SCH (09:00)
[2018-01-08] MEDS ORDERED: ATORVASTATIN 80 MG TAB PO SCH (09:00)
[2018-01-08] MEDS ORDERED: DILTIAZEM CD 180 MG CAP.ER.24H PO SCH (16:00)
== END 2018-01-08 11:10 | disposition home or self-care (01) ==
LOC: OR 08:46 → 5MS5E 11:33 → 3SUR 12:22 → OR 01-08 11:10
PROVIDERS: ATTEND Urology
DX: N40.1 Benign prostatic hyperplasia with lower urinary tract symptoms (principal); R33.8 Other retention of urine; C61 Malignant neoplasm of prostate; I48.2 Chronic atrial fibrillation; Z79.01 Long term (current) use of anticoagulants; I25.10 Atherosclerotic heart disease of native coronary artery without angina pectoris; I11.0 Hypertensive heart disease with heart failure; Z87.891 Personal history of nicotine dependence; I50.9 Heart failure, unspecified; I42.0 Dilated cardiomyopathy; E78.2 Mixed hyperlipidemia; K21.9 Gastro-esophageal reflux disease without esophagitis; M19.90 Unspecified osteoarthritis, unspecified site; Z86.73 Personal history of transient ischemic attack (TIA), and cerebral infarction without residual deficits; Z79.02 Long term (current) use of antithrombotics/antiplatelets; Z79.2 Long term (current) use of antibiotics; Z79.899 Other long term (current) drug therapy
CPT/HCPCS: 94760; 88305; 88342; 88341; 52601; J2250; J1100; J2710; J2405; J2001; J3010; J1580; J0290; J0330; J2704